=== PATIENT | female | born 1975 | race Caucasian/White ===

== ENCOUNTER 2017-10-16 08:13 | Outpatient (REF) | payer OTHER, SELFPAY ==
[2017-10-16 18:53] LABS: ALT 26 U/L (12-78); AST 15 U/L (15-37); Albumin 3.8 g/dL (3.4-5.0); Alkaline Phosphatase 78 U/L (46-116); Anion Gap 10.6 mmol/L (3-11); BUN 10 mg/dL (7-18); Bilirubin, Total 0.4 mg/dL (0.2-1.0); CO2 25.4 mmol/L (21.0-32.0); CREATININE 0.97 mg/dL (0.55-1.02); Calcium 8.7 mg/dL (8.5-10.1); Chloride 103 mmol/L (98-107); Cholesterol 130 mg/dL (50-200); Glucose 202 mg/dL (70-100); HDL Cholesterol 41 mg/dL (40-60); LDL CHOLESTEROL 76 mg/dL (<100); Sodium 139 mmol/L (136-145); Total Protein 7.4 g/dL (6.4-8.2); Triglyceride 117 mg/dL (30-150)
[2017-10-16 19:17] LABS: Hemoglobin A1C 6.8 % (4.5-6.2)
== END 2017-10-16 08:14 ==
LOC: NCHCN 08:13
PROVIDERS: PCP Physician Assistant Medical; Visit Provider Nurse Practitioner Family
DX: Z00.00 Encounter for general adult medical examination without abnormal findings (principal); E11.9 Type 2 diabetes mellitus without complications
CPT/HCPCS: 80053; 80061; 83721; 83036

== ENCOUNTER 2019-02-23 08:00 | Outpatient (REF) | payer OTHER, SELFPAY ==
[2019-02-23 19:56] LABS: ALT 15 U/L (14-59); AST 13 U/L (15-37); Albumin 4.1 g/dL (3.4-5.0); Alkaline Phosphatase 107 U/L (46-116); Anion Gap 13.1 mmol/L (3-11); BUN 10 mg/dL (7-18); Bilirubin, Total 0.5 mg/dL (0.2-1.0); CO2 24.9 mmol/L (21.0-32.0); CREATININE 0.89 mg/dL (0.55-1.02); Calcium 8.9 mg/dL (8.5-10.1); Calculated LDL 65 mg/dL; Chloride 102 mmol/L (98-107); Cholesterol 150 mg/dL (<200); Glucose 250 mg/dL (74-106); HDL Cholesterol 47 mg/dL (40-60); Potassium 4.3 mmol/L (3.5-5.1); Sodium 140 mmol/L (136-145); Total Protein 7.5 g/dL (6.4-8.2); Triglyceride 191 mg/dL (<150)
[2019-02-23 20:15] LABS: Creatine Kinase 91 U/L (26-192)
== END 2019-02-23 08:20 ==
LOC: NCHCN 08:00
PROVIDERS: PCP Physician Assistant Medical; Visit Provider Nurse Practitioner Family
DX: Z00.00 Encounter for general adult medical examination without abnormal findings (principal); Z13.228 Encounter for screening for other metabolic disorders; Z13.220 Encounter for screening for lipoid disorders; E11.9 Type 2 diabetes mellitus without complications
CPT/HCPCS: 80053; 80061; 82550; 82043; 82570

== ENCOUNTER 2019-02-24 09:14 | Outpatient (REF) | payer OTHER, SELFPAY ==
[2019-02-24 21:11] LABS: COMMENT (LAB VIEW ONLY) 155.12 mg/dL; Microalb ug/mg Crea 17.9 ug/mg Cr
== END 2019-02-24 09:34 ==
LOC: NCHCN 09:14
PROVIDERS: PCP Nurse Practitioner Family; Visit Provider Nurse Practitioner Family
DX: Z00.00 Encounter for general adult medical examination without abnormal findings (principal); E11.9 Type 2 diabetes mellitus without complications
CPT/HCPCS: 82043; 82570

== ENCOUNTER 2020-05-01 11:16 | Outpatient (REF) | payer OTHER, SELFPAY | END 2020-05-01 11:17 | disposition home or self-care (01) | LOC: NCHCN 11:16 | PROVIDERS: PCP Nurse Practitioner Family; Visit Provider Family Medicine | DX: E11.9 Type 2 diabetes mellitus without complications (principal) | CPT/HCPCS: 82043; 82570 ==

== ENCOUNTER 2020-10-30 13:42 | Outpatient (REF) | payer OTHER, SELFPAY ==
[2020-10-30 21:17] LABS: COMMENT (LAB VIEW ONLY) 57.35 mg/dL; Microalb ug/mg Crea 5.9 ug/mg Cr
== END 2020-10-30 13:43 | disposition home or self-care (01) ==
LOC: NCHCN 13:42
PROVIDERS: PCP Nurse Practitioner Family; Visit Provider Nurse Practitioner Family
DX: E11.9 Type 2 diabetes mellitus without complications (principal); R80.9 Proteinuria, unspecified; Z00.00 Encounter for general adult medical examination without abnormal findings
CPT/HCPCS: 82043; 82570

== ENCOUNTER 2021-11-12 13:19 | Outpatient (REF) | payer OTHER, SELFPAY ==
[2021-11-12 19:23] LABS: ALT 40 U/L (14-59); AST 25 U/L (15-37); Albumin 4.1 g/dL (3.4-5.0); Alkaline Phosphatase 83 U/L (46-116); Anion Gap 9.3 mmol/L (3-11); BUN 9 mg/dL (7-18); Bilirubin, Total 0.4 mg/dL (0.2-1.0); CO2 27.7 mmol/L (21.0-32.0); CREATININE 0.9 mg/dL (0.55-1.02); Calcium 9.3 mg/dL (8.5-10.1); Calculated LDL 121 mg/dL (<100); Chloride 104 mmol/L (98-107); Cholesterol 205 mg/dL (<200); Estimated GFR 78.86 (mL/min/1.73m2); Glucose 120 mg/dL (74-106); HDL Cholesterol 53 mg/dL (40-60); Potassium 4.8 mmol/L (3.5-5.1); Sodium 141 mmol/L (136-145); Total Protein 7.9 g/dL (6.4-8.2); Triglyceride 159 mg/dL (<150)
[2021-11-12 20:07] LABS: COMMENT (LAB VIEW ONLY) 176.04 mg/dL; Microalb ug/mg Crea 11.2 ug/mg Cr
[2021-11-14 10:48] LABS: Hepatitis C Ab w Rflx HCV PCR Negative (Negative)
== END 2021-11-12 13:20 | disposition home or self-care (01) ==
LOC: NCHCN 13:19
PROVIDERS: PCP Nurse Practitioner Family; Visit Provider Nurse Practitioner Family
DX: Z11.59 Encounter for screening for other viral diseases (principal); E11.9 Type 2 diabetes mellitus without complications
CPT/HCPCS: 80053; 80061; 86803; 82043; 82570

== ENCOUNTER 2022-05-13 10:18 | Outpatient (REF) | payer OTHER, SELFPAY ==
[2022-05-13 21:15] LABS: ALT 35 U/L (14-59); AST 18 U/L (15-37); Albumin 4.2 g/dL (3.4-5.0); Alkaline Phosphatase 82 U/L (46-116); Anion Gap 6.7 mmol/L (3-11); BUN 9 mg/dL (7-18); Bilirubin, Total 0.4 mg/dL (0.2-1.0); CO2 27.3 mmol/L (21.0-32.0); Calcium 9.5 mg/dL (8.5-10.1); Calculated LDL 90 mg/dL (<100); Chloride 106 mmol/L (98-107); Cholesterol 164 mg/dL (<200); Estimated GFR 69.49 (mL/min/1.73m2); Glucose 112 mg/dL (74-106); HDL Cholesterol 51 mg/dL (40-60); Potassium 5.2 mmol/L (3.5-5.1); Sodium 140 mmol/L (136-145); Total Protein 7.8 g/dL (6.4-8.2); Triglyceride 116 mg/dL (<150)
== END 2022-05-13 10:19 | disposition home or self-care (01) ==
LOC: NCHCN 10:18
PROVIDERS: PCP Nurse Practitioner Family; Visit Provider Nurse Practitioner Family
DX: E11.9 Type 2 diabetes mellitus without complications (principal)
CPT/HCPCS: 80053; 80061

== ENCOUNTER 2023-02-19 08:59 | Outpatient (REF) | payer OTHER, SELFPAY ==
--- OUTSIDE RECORDS SUMMARY | 2023-02-19 09:01 | XMS_ITS | Continuity of Care Document ---
Author Name Unknown Organization [facility] Address [address] [place] [address] Care Team Providers Care Sap Bw Architect Name Role Phone Catherine Yo Primary Care Physician [phone] Encounter [facility] [id number] Date(s): 06/19/22 - 06/19/[address] [address] Discharge Disposition: Home or Self Care Attending Physician: Darshana Ellison DO Admitting Physician: Darshana Ellison DO Referring Physician: Darshana Ellison DO Allergies, Adverse Reactions, Alerts Substance Reaction Severity Status CHOCOLATE FLAVOR Angioneurotic edema Unknown Acti ve doxycycline Urticaria Unknown Active Assessment and Plan Future Scheduled Tests Radiology* MRI Shoulder w/o Contrast Right 12/20/21 Immunizations Given and Recorded Vaccine Date Status Refusal Reason SARS-CoV-2 (COVID-19) mRNA BNT-162b2 vax 12/09/21 Recorded pneumococcal 20-valent conjugate vaccine 11/12/21 Recorded influenza virus vaccine, inactivated 1 10/31/21 Re corded influenza virus vaccine, inactivated 11/18/12 See rded influenza virus vaccine, inactivated 11/20/11 See rded influenza virus vaccine, inactivated 11/01/10 See rded influenza virus vaccine, inactivated 11/17/09 See rded influenza virus vaccine, inactivated 12/18/08 See rded SARS-CoV-2 (COVID-19) mRNA-1273 vaccine 12/16/20 R ecorded SARS-CoV-2 (COVID-19) mRNA-1273 vaccine 03/08/20 R ecorded SARS-CoV-2 (COVID-19) mRNA-1273 vaccine 02/08/20 R ecorded influenza virus vaccine, live 10/31/20 Recorded influenza virus vaccine, live 11/16/19 Recorded influenza virus vaccine, live 11/30/18 Recorded tetanus/diphth/pertuss (Tdap) adult/adol 08/12/19 Recorded tetanus/diphth/pertuss (Tdap) adult/adol 09/17/09 Recorded Novel Kgynwjewf-[id number], all formulation 12/18/08 Recorded tetanus-diphth toxoids (Td) adult/adol 02/18/00 Re corded rubella virus vaccine 2 73 Recorded measles/mumps/rubella virus vaccine 3 73 Rec orded hepatitis B adult vaccine 4 73 Recorded varicella virus vaccine 5 73 Recorded 1Result Comment: Employee Health 2Result Comment: INCORRECT DATE 3Result Comment: INCORRECT DATE 4Result Comment: INCORRECT DATE 5Result Comment: INCORRECT DATE Medications acetaminophen 325 mg oral tablet 650 mg = 2 tab, Oral, every 4 hr, PRN other (see comment), as needed Start Date: 09/26/21 Status: Ordered atorvastatin 10 mg oral tablet 10 mg = 1 tab, Oral, Daily, # 30 tab, 0 Refill(s) Start Date: 06/04/22 Status: Ordered ibuprofen 200 mg oral capsule 3 tab, Oral, every 6 hr Start Date: 09/26/21 Status: Ordered metFORMIN 500 mg oral tablet 500 mg = 1 tab, Oral, Daily, with meals, # 30 tab, 0 Refill(s) Start Date: 06/04/22 Status: Ordered ondansetron 4 mg oral tablet, disintegrating 4 mg = 1 tab, Oral, Once, PRN as needed for nausea/vomiting, # 30 tab, 1 Refill(s), Pharmacy: [id number] Start Date: 02/06/22 Status: Ordered Ozempic 2 mg/1.5 mL (0.25 mg or 0.5 mg dose) subcutaneous solution 0 Refill(s) Start Date: 06/04/22 Status: Ordered Problem List Condition Confirmation Course Effective Dates Status H ealth Status Informant Acne Confirmed Active Anisocoria Confirmed Active Contact dermatitis Confirmed Active Depressive disorder Confirmed Active Diabetes mellitus Confirmed 12/15/17 Active Disorder of pancreas Confirmed Active Dysthymia Confirmed Active Dysuria Confirmed Active Hip pain Confirmed Active Inflammation of cervix Confirmed Active Insomnia Confirmed Active Intestinal disaccharidase deficiency Confirmed Active Irritable bowel syndrome Confirmed Active Pain of breast Confirmed Active Panic disorder with agoraphobia Confirmed Active Ventral incisional hernia 1 Confirmed Active Ventricular premature beats Confirmed 12/08/17 Active 1Ventral incisional hernia of anterior abdominal wall without obstruction AND without gangrene Procedures Procedure Date Related Diagnosis Body Site Status Colonoscopy 1 04/23/20 Completed Laparoscopic total hysterectomy 2 12/14/17 Completed Hernia repair 11/16/16 Completed Cholecystectomy 3 02/02/11 Complet ed Tubal ligation Completed 1WNL 2TLH, BSO, USVVS, Cystoscopy 3Laparoscopic Social History Social History Type Response Tobacco Never tobacco user T obacco Use:. Sex Female Patient Care team information Care Team Personnel Name: Catherine Yo COMPOUND WORKER Position: PowerChart View Only Member Role: Primary Care Physician Address: Address: [address] [place] [phone]- Care Team Related Persons Name: ARASELI CASAS Address: Home [address] [facility], [place], [phone]
--- OUTSIDE RECORDS SUMMARY | 2023-02-19 09:01 | XMS_ITS | Continuity of Care Document ---
Author Name Unknown Organization [facility] Address [address] [place] [address] Care Team Providers Care Manager Knowledge Name Role Phone Catherine Yo Primary Care Physician Encounter [facility] [id number] Date(s): 11/13/22 - 11/13/[address] [address] [place] Encounter Diagnosis Chest pain(Discharge Diagnosis) - 11/13/22 Discharge Disposition: Home or Self Care Attending Physician: Sinai Joiner FLEET OPERATIONS MANAGER Admitting Physician: Sinai Joiner NP Referring Physician: Sinai Joiner FLEET OPERATIONS MANAGER Allergies, Adverse Reactions, Alerts Substance Reaction Severity Status CHOCOLATE FLAVOR Angioneurotic edema Unknown Acti ve doxycycline Urticaria Unknown Active Assessment and Plan Future Appointments Future Scheduled Tests Radiology* MRI Shoulder w/o [...] Recorded tetanus/diphth/pertuss (Tdap) adult/adol 09/17/09 Recorded Novel Mztnwdqby-N5L5-06, all formulation 12/18/08 Recorded tetanus-diphth toxoids (Td) [...] nausea/vomiting, # 30 tab, 1 Refill(s), Pharmacy: [id number] Start Date: 02/06/22 Status: Ordered Ozempic 2 [...] team information Care Team Personnel Name: Catherine oY FLEET OPERATIONS MANAGER Position: PowerChart View Only Member Role: Primary Care Physician Address: Address: [address] [place] [phone]- Care Team Related Persons Name: ARASELI CASAS Address: Home [address] [place] [address], [phone]
--- OUTSIDE RECORDS SUMMARY | 2023-02-19 09:01 | XMS_ITS | Continuity of Care Document ---
Author Name Unknown Organization [facility] Address [address] [place] [address] Care Team Providers Care Technical Services Representative Name Role Phone Catherine Yo Primary Care Physician [phone] Encounter [facility] [id number] Date(s): 04/02/22 - 04/02/[address] [address] Discharge Disposition: Home or Self Care Attending Physician: Darshana Ellison DO Admitting Physician: Darshana Ellison DO Referring Physician: Catherine Yo COUNCIL ON AGING DIRECTOR Allergies, Adverse Reactions, Alerts Substance Reaction Severity [...] Recorded tetanus/diphth/pertuss (Tdap) adult/adol 09/17/09 Recorded Novel Iqyqussss-P4P1-95, all formulation 12/18/08 Recorded tetanus-diphth toxoids (Td) [...] as needed Start Date: 09/26/21 Status: Ordered ibuprofen 200 mg oral capsule 3 tab, Oral, every 6 hr Start Date: 09/26/21 Status: Ordered ondansetron 4 mg oral tablet, disintegrating 4 mg = 1 tab, Oral, Once, PRN as needed for nausea/vomiting, # 30 tab, 1 Refill(s), Pharmacy: [id number] Start Date: 02/06/22 Status: Ordered Problem List Condition Confirmation Course [...] information Care Team Personnel Name: Catherine Yo COUNCIL ON AGING DIRECTOR Position: PowerChart View Only Member Role: Primary Care Physician Address: Address: [address] [place] [phone]- Care Team Related Persons Name: ARASELI CASAS Address: Home [address] [facility], [phone]
--- OUTSIDE RECORDS SUMMARY | 2023-02-19 09:01 | XMS_ITS | Continuity of Care Document ---
Author Name Unknown Organization [facility] Address [address] [place] [address] Care Team Providers Care Extender Name Role Phone Catherine Yo Primary Care Physician [facility] Date[facility]s): 06/04/22 - 06/04/22 [facility] [address] [place] [address] us Discharge Disposition: Home Allergies, Adverse Reactions, Alerts Substance Reaction Severity [...] Recorded tetanus/diphth/pertuss (Tdap) adult/adol 09/17/09 Recorded Novel Qqwrjhhfe-[id number], all formulation 12/18/08 Recorded tetanus-diphth toxoids (Td) [...] nausea/vomiting, # 30 tab, 1 Refill(s), Pharmacy: [id number] Start Date: 02/06/22 Status: Ordered Ozempic 2 [...] information Care Team Personnel Name: Catherine Yo TAFE REGISTRAR Position: PowerChart View Only Member Role: Primary Care Physician Address: Address: [address] [place] [phone]- Care Team Related Persons Name: ARASELI CASAS Address: Home [address] [place] [address], [phone]
--- OUTSIDE RECORDS SUMMARY | 2023-02-19 09:01 | XMS_ITS | Continuity of Care Document ---
Author Name Unknown Organization [facility] Address [address] [place] [address] Care Team Providers Care Buyer Internship Name Role Phone Catherine Yo Primary Care Physician Encounter [facility] Date(s): 06/04/22 - 06/04/22 [facility] [address] [place] [address] [place] Encounter Diagnosis Diabetes mellitus(Discharge Diagnosis) - 06/04/22 Palpitations(Discharge Diagnosis) - 06/04/22 Palpitations(Final) - Type 2 diabetes mellitus without complications(Final) - Discharge Disposition: Home or Self Care Attending Physician: Darshana Ellison DO Allergies, Adverse Reactions, Alerts Substance Reaction Severity Status CHOCOLATE FLAVOR Angioneurotic edema Unknown Acti ve doxycycline Urticaria Unknown Active Assessment and Plan Future Appointments Future Scheduled Tests Radiology* MRI Shoulder w/o Contrast Right 12/20/21 Functional Status 06/04/22 Other exposure to Infectious Disease Non e Immunizations Given and Recorded Vaccine Date Status [...] Recorded tetanus/diphth/pertuss (Tdap) adult/adol 09/17/09 Recorded Novel Exeixmykt-[id number], all formulation 12/18/08 Recorded tetanus-diphth toxoids (Td) [...] nausea/vomiting, # 30 tab, 1 Refill(s), Pharmacy: [id number] Start Date: 02/06/22 Status: Ordered Ozempic 2 [...] Completed 1WNL 2TLH, BSO, USVVS, Cystoscopy 3Laparoscopic Vital Signs Most recent to oldest [Reference Range]: 1 Peripheral Pulse Rate [60-100 bpm] 76 bp m (06/04/22 8:35 AM) Blood Pressure [90-140/60-90 mmHg] 128/8 3mmHg (06/04/22 8:35 AM) Weight 80.8 kg (06/04/22 8:35 AM) Weight Measured (lbs) 178.133 lb (06/04/22 8:35 AM) Social History Social History Type Response Tobacco Never tobacco user T obacco Use:. Sex Female Physician Outpatient Note * Darshana Ellison DO: PERFORM Event Display: Office Clinic Note Physician Authored Date: [id number] AUGUSTO TA JESSENIA :1975 Age:46 years Sex:Female Visit Date:06/04/2022 Primary Care Physician: Catherine Yo NP Chief Complaint Patient is here to [facility]. History of Present Illness Patient is here for initial evaluation.?? Patient has a significant family history.?? Patient underwent a stress test without imaging.?? Patient's mother had an SD at age 42.?? Patient's father had CABG at age 70s.?? Patient is experiencing palpitations.?? Review of Systems Constitutional:?No??fevers,?No??chills,?No??sweats Eye:?No??recent visual problems ENT:?No??ear pain,?No??nasal congestion,?No??sore throat Respiratory:?No??shortness of breath,?No??cough Cardiovascular:?No??Chest pain,?Positive for??palpitations,?No??syncope Gastrointestinal:?Nonausea,?No??vomiting,?No??diarrhea Genitourinary:?No??hematuria Gurpreet/Lymph:?No??bruising tendency,?No??swollen lymph glands Endocrine:?No??excessive thirst,??No??excessive hunger Musculoskeletal:??No??back pain,??No??neck pain,??No??joint pain,??No??muscle pain,??No??decreased range of motion Integumentary:?No??rash,?No??pruritus,?No??abrasions Neurologic: Alert & oriented X 4 Psychiatric:?No??anxiety,?No??depression Physical Exam Vitals & Measurements HR:??76??(Peripheral)?? BP:??128/83?? SpO2:??98%?? WT:??80.8??kg?? General: Alert and oriented, well nourished,?No??acute distress Eye: PERRL, EOMI,?Normal?conjunctiva HENT: Normocephalic, clear tympanic membranes,?Normal? hearing, moist oral mucosa,?No??scleral icterus,?No??sinus tenderness Neck: Supple, non-tender,?No??carotid bruits,?No??JVD,?No??lymphadenopathy Lungs:??Clear to auscultation?? Respiration:??Non-Labored Heart:?Normal? rate,?Regular??rhythm,?No??murmur,?No??gallop,?No??edema Breast:?No??lumps,?No??bumps,?No??scars,?Normal? nipples Abdomen: Soft, non-tender, non-distended,?Normal? bowel sounds,?No??masses Musculoskeletal:?Normal? range of motion and strength,?No??tenderness,?No??swelling Skin: Skin is warm, dry and pink,?No??rashes,?No??lesions Neurologic: Awake, alert and oriented X4, CN II-XII intact Psychiatric: Cooperative, appropriate mood and affect Assessment/Plan 1.??Diabetes mellitus??E11.9 1. echocardiogram Ordered: Echocardiogram Complete, 06/04/22, Other, Please Specify, Order for future visit, Diabetes mellitus Palpitations Follow-Up Appointment Request [facility], *Est. 09/03/22 +/- 21 days, Future Order, In Approximately, [facility] ?? 2.??Palpitations??R00.2 1. echocardiogram 2. follow up after echocardipogram Ordered: Echocardiogram Complete, 06/04/22, Other, Please Specify, Order for future visit, Diabetes mellitus Palpitations Follow-Up Appointment Request [facility], *Est. 09/03/22 +/- 21 days, Future Order, In Approximately, [facility] ?? Problem List/Past Medical History Ongoing Acne Anisocoria Contact dermatitis Depressive disorder Diabetes mellitus Disorder of pancreas Dysthymia Dysuria Hip pain Inflammation of cervix Insomnia Intestinal disaccharidase deficiency Irritable bowel syndrome Pain of breast Panic disorder with agoraphobia Ventral incisional hernia Ventricular premature beats Historical No qualifying data Procedure/Surgical History ???Colonoscopy (04/24/2020)???Laparoscopic total hysterectomy (12/15/2017)???Hernia repair (11/17/2016)???Cholecystectomy (02/03/2011)???Tubal ligation Medications acetaminophen 325 mg oral tablet, 650 mg= 2 tab, Oral, every 4 hr, PRN atorvastatin 10 mg oral tablet, 10 mg= 1 tab, Oral, Daily ibuprofen 200 mg oral capsule, 3 tab, Oral, every 6 hr metFORMIN 500 mg oral tablet, 500 mg= 1 tab, Oral, Daily ondansetron 4 mg oral tablet, disintegrating, 4 mg= 1 tab, Oral, Once, PRN, 1 refills Ozempic 2 mg/1.5 mL (0.25 mg or 0.5 mg dose) subcutaneous solution Allergies CHOCOLATE FLAVOR??(Angioneurotic edema) doxycycline??(Urticaria) Social History Electronic Cigarette/Vaping Electronic Cigarette Use: Never. Tobacco Never tobacco user Tobacco Use:. Family History Bypass: Mother (Dx at 42). Diabetes mellitus: Mother and Father. Heart disease: Mother. Hypertension: Father. SS - Spinal stenosis: Father. Immunizations Vaccine Date Status SARS-CoV-2 (COVID-19) mRNA BNT-162b2 vax 12/09/2021 Recorded pneumococcal 20-valent conjugate vaccine 11/12/2021 Recorded influenza virus vaccine, inactivated 10/31/2021 Recorded Comments : Employee Health SARS-CoV-2 (COVID-19) mRNA-1273 vaccine 12/16/2020 Recorded influenza virus vaccine, live 10/31/2020 Recorded SARS-CoV-2 (COVID-19) mRNA-1273 vaccine 03/08/2020 Recorded SARS-CoV-2 (COVID-19) mRNA-1273 vaccine 02/08/2020 Recorded influenza virus vaccine, live 11/16/2019 Recorded tetanus/diphth/pertuss (Tdap) adult/adol 08/12/2019 Recorded influenza virus vaccine, live 11/30/2018 Recorded influenza virus vaccine, inactivated 11/18/2012 Recorded influenza virus vaccine, inactivated 11/20/2011 Recorded influenza virus vaccine, inactivated 11/01/2010 Recorded influenza virus vaccine, inactivated 11/17/2009 Recorded tetanus/diphth/pertuss (Tdap) adult/adol 09/17/2009 Recorded influenza virus vaccine, inactivated 12/18/2008 Recorded Novel Bjfswnoax-E0J1-88, all formulation 12/18/2008 Recorded tetanus-diphth toxoids (Td) adult/adol 02/18/2000 Recorded Electronically Signed on 06/04/22 09:11 AM Darshana Ellison DO Patient Care team information Care Team Personnel Name: Catherine Yo SEPHORA OPERATIONS CONSULTANT Position: PowerChart View Only Member Role: Primary Care Physician Address: Address: [address] [place] [phone] [place] Care Team Related Persons Name: ARASELI CASAS Address: Home [address] [place] [address], [phone]
--- OUTSIDE RECORDS SUMMARY | 2023-02-19 09:01 | XMS_ITS | Continuity of Care Document ---
Author Name Unknown Organization [facility] Address [address] [place] [address] Care Team Providers Care Saddle Stitching Machine Operator Name Role Phone Catherine Yo Primary Care Physician Encounter [facility] Date(s): 03/08/22 - 03/08/[address] [address] Discharge Disposition: Home or Self Care Attending Physician: Catherine Yo LABORER VINEYARD Admitting Physician: Catherine Yo LABORER VINEYARD Referring Physician: Catherine Yo LABORER VINEYARD Allergies, Adverse Reactions, Alerts Substance Reaction Severity [...] Recorded tetanus/diphth/pertuss (Tdap) adult/adol 09/17/09 Recorded Novel Zopkgjleh-M3G7-05, all formulation 12/18/08 Recorded tetanus-diphth toxoids (Td) [...] nausea/vomiting, # 30 tab, 1 Refill(s), Pharmacy: [id number] Start Date: 02/06/22 Status: Ordered Problem List [...] tobacco user T obacco Use:. Sex Female Note * Ariadne Ramirez: PERFORM Event Display: Event Monitor Authored Date: [id number] TA CASAS 1975 [id number] Patient placed on Zio Event Monitor 14 dayson 03/08/22. Electronically Signed on 03/08/22 04:16 PM Ariadne Ramirez Patient Care team information Personnel Name: Catherine Yo NP Address: Address: [address] [place] [phone] [place]
--- OUTSIDE RECORDS SUMMARY | 2023-02-19 09:01 | XMS_ITS | Continuity of Care Document ---
Author Name Unknown Organization [facility] Address [address] [place] [address] Care Team Providers Care Blade Grinder Name Role Phone Catherine Yo Primary Care Physician [phone] [facility] Date(s): 06/12/22 - 06/12/[address] [address] Discharge Disposition: Home or Self Care Attending Physician: Catherine Yo APPLIQUE CUTTER Admitting Physician: Catherine Yo APPLIQUE CUTTER Referring Physician: Catherine Yo APPLIQUE CUTTER Allergies, Adverse Reactions, Alerts Substance Reaction Severity [...] Recorded tetanus/diphth/pertuss (Tdap) adult/adol 09/17/09 Recorded Novel Hfificzcr-[id number], all formulation 12/18/08 Recorded tetanus-diphth toxoids (Td) [...] nausea/vomiting, # 30 tab, 1 Refill(s), Pharmacy: [id number] Start Date: 02/06/22 Status: Ordered Ozempic 2 [...] information Care Team Personnel Name: Catherine Yo APPLIQUE CUTTER Position: PowerChart View Only Member Role: Primary Care Physician Address: Address: [address] [place] [phone]- Care Team Related Persons Name: ARASELI CASAS Address: Home [address] [place] [address], [phone]
--- OUTSIDE RECORDS SUMMARY | 2023-02-19 09:01 | XMS_ITS | Continuity of Care Document ---
Author Name Unknown Organization [facility] Address [address] [place] [address] Care Team Providers Care Emergency Registrar Name Role Phone Catherine Yo Primary Care Physician [phone] Encounter NCTY_[place] Date(s): 10/22/22 - 10/22/22 [facility] [address] [place] [address] Encounter Diagnosis Ventricular premature beats(Discharge Diagnosis) - 10/22/22 Chest pain(Discharge Diagnosis) - 10/22/22 Discharge Disposition: Home or Self Care Attending Physician: Sinai Joiner RESEARCH & INSIGHTS EXECUTIVE Allergies, Adverse Reactions, Alerts Substance Reaction Severity Status CHOCOLATE FLAVOR Angioneurotic edema Unknown Acti ve doxycycline Urticaria Unknown Active Assessment and Plan Future Appointments Future Scheduled Tests Radiology* MRI Shoulder w/o Contrast Right 12/20/21 * NM Myocardial SPECT Drug Stress Multi 10/22/22 Immunizations Given and Recorded Vaccine Date Status [...] Recorded tetanus/diphth/pertuss (Tdap) adult/adol 09/17/09 Recorded Novel Cbbzfcayi-[id number], all formulation 12/18/08 Recorded tetanus-diphth toxoids (Td) [...] nausea/vomiting, # 30 tab, 1 Refill(s), Pharmacy: [id number] Start Date: 02/06/22 Status: Ordered Ozempic 2 mg/1.5 mL (0.25 mg or 0.5 mg dose) subcutaneous solution 0 Refill(s) Start Date: 06/04/22 Status: Ordered Problem List Condition Confirmation Course Effective Dates Status H ealth Status Informant Acne Confirmed Active Anisocoria Confirmed Active Contact dermatitis Confirmed Active Depressive disorder Confirmed Active Diabetes mellitus Confirmed 10/29/18 Active Disorder of pancreas Confirmed Active Dysthymia [...] Range]: 1 Peripheral Pulse Rate [60-100 bpm] 90 bp m (10/22/22 3:17 PM) Blood Pressure [90-140/60-90 mmHg] 124/8 0mmHg (10/22/22 3:17 PM) Weight 76.10 kg (10/22/22 3:17 PM) Weight Measured (lbs) 167.772 lb (10/22/22 3:17 PM) Height 163 cm (10/22/22 3:17 PM) Height/Length Measured (inches) 64.17 in ch (10/22/22 3:17 PM) BSA Measured 1.86 m2 (10/22/22 3:17 PM) Body Mass Index 28.64 kg/m2 (10/22/22 3:17 PM) Social History Social History Type Response Tobacco Never tobacco user T obacco Use:. Sex Female Physician Outpatient Note * Sinai Joiner RESEARCH & INSIGHTS EXECUTIVE: PERFORM Event Display: Office Clinic Note Physician Authored Date: [id number] AUGUSTINA CASAS :1975 Age:47 years Sex:Female Visit Date:10/22/2022 Primary Care Physician: Catherine Yo NP History of Present Illness Cardiac Problems: 1. Diabetes Mellitus- atorvastatin 10mg ?? This is a 47-year-old female that was last seen by Dr. Ellison on to establish care. She has a family history of cardiac issues- her mother had an CO at age 42 and father had a CABG in his 70s.??In May 2022??she was experiencing palpitations. Dr. Ellison had ordered an echocardiogramwhich was reassuring. ??She is maintained on atorvastatin 10mg. She had a zio in 03/2022 which showed 13 day monitor, predominance of sinus, 63-171bpm. Rare single PACs and PVCs. No VT or pauses. Single episode of 6 beats narrow complex irregular tachycardia- essentially cluster of PACs-she was not aware of. PCP did not think the single episode of clustered PACs was of clinical significance. ?? She is doing well today. She has been under significant stress lately between her husbands newly diagnosed??illness, her father's cancer, and being a mom. She reports palpitations 2x/week that feel like?? heart is flip-flopping. She states shes knows if she has too much caffeine (2 cups)??will have more palpitations. She was having palpitations ??and chest pressure frequently, then had respiratory disease in May with??significant coughing and they have decreased to 2x/week and ???better since then?? . She describes them as it feels like a rapid HR, I check my pulse and it is a little over 100, Nothing extravagant.? She now is reporting once a week 3/10 chest pressure on her right?? chest through the back. She comments that she does??have issues with her shoulder and she was chalking it up to stress or tossing and turning the night before. No nausea, syncope, no SOB, no diaphoresis with this pressure, andit is??resolved in a??couple of hours.??Last week was the last time she experienced this chest pressure. ?? She denies syncope, dyspnea, PND, orthopnea, and edema. She is currently not performing regular exercise. 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 She does achieve 10,000 steps daily. The activity she does perform she denies chest pain and dyspnea however. ?? She does not take her blood pressure at home. She has been on Ozempic for her diabetes and has lostover 37pounds. ?? She did raise a question of her atorvastatin dosing. It was originally 10mg, and now Annettat it giving her 20mg and stated it was a dose increase starting in October but I can not see any notes regarding this increase. She is speaking with her PCP at her next appointment regarding this. She believes her cholesterol readings were normal. Review of Systems A complete review of systems is negative other than as noted in the history of present illness. Physical Exam Vitals & Measurements HR:??90??(Peripheral)?? BP:??124/80?? SpO2:??97%?? HT:??163??cm?? WT:??76.10??kg?? BMI:??28.64?? BSA:??1.86?? HEENT: Normocephalic, atraumatic Respirations: Clear to auscultation bilaterally with no wheezes rubs or rhonchi Cardiac: Regular rate and rhythm, normal S1, S2, no murmurs gallops or rubs Abdomen: Nontender nondistended normal active bowel sounds Extremities: 2+ dorsalis pedis pulses bilaterally with no significant edema Medical Decision Making Data Review: 03/28/2022: ZIO: 13 day monitor, predominance of sinus, 63-171bpm. Rare single PACs and PVCs. No VTor pauses. Single episode of 6 beats narrow complex irregular tachycardia-essentially cluster of PACs-she was not aware of. PCP did not think the single episode of clustered PACs was of clinical significance. 04/02/2022: Treadmill stress test: Normal stress test. Ambulated 9 minutes. 10.10 METs. MPHR 112% achieved. No chest pain. 06/19/2022: Echocardiogram: EF 60% normal wall motion. Mild TR. PAP 19mmHg. Reassuring echo. 10/22/2022: Sinus rhythm at 74bpm, axis and intervals within normal limits. ? 47-year-old female with palpitations ? Palpitations: We discussed that her Zio showed PACs and reassured her that?? PACs and PVCs are not dangerous, do not increase risk of having CO or stroke and are a normal rhythm. She should continue to exercise??as normal. ??If they become unbearable however, we could always try cardizem as our next step. She did not want to start medication at this time, and it didn't sound like it was unmanageable for her at this time. ?? Chest pain: She is currently having 3/10 chest pain/pressure weekly and has an extensive family history of cardiac disease and a personal history of diabetes. Her echocardiogram was reassuring recently so I am ordering a Lexiscan test to rule out ischemia. This chest pain is a new symptom from her last treadmill test and I want to make sure there is no new ischemia present. I will see her in 3 months to go over these results. If she continues to have this chest pain, I encouraged her to be evaluated in the ER. ?? It was a pleasure to meet Augustina Dan. She knows to call with any questions. Clinic Assessment/Plan Chest pain??R07.9 Actions: COMPLETED - 94005 Office/Outpatient Visit - Established Patient, Level 4 (30-39 min)., 10/22/22 15:13:00 EDT, Chest pain FUTURE - Follow-Up Appointment Request NCTY, *Est. 01/21/23 +/- 21 days, Future Order, In Count Includes [facility], [facility] FUTURE - NM Myocardial SPECT Drug Stress Multi, 10/22/22, Routine, Reason: Chest pain, Transport Mode: Ambulatory, Chest pain, Exam to be performed outside organization? ?? Ventricular premature beats??I49.3 [facility]: [facility], 10/22/22 15:17:00 EDT, Routine, Reason: Other (please specify), Stop date and time 10/22/22 15:17:00 EDT, Ventricular premature beats, ORD_SET_REQ_DT_RANGE, Trajuanjose's Internal Person Id ?? Problem List/Past Medical History Ongoing Acne Anisocoria Contact dermatitis Depressive disorder Diabetes mellitus Disorder of pancreas Dysthymia Dysuria Hip pain Inflammation of cervix Insomnia Intestinal disaccharidase deficiency Irritable bowel syndrome Pain of breast Panic disorder with agoraphobia Ventral incisional hernia Ventricular premature beats Historical No qualifying data Procedure/Surgical History ???Colonoscopy (04/24/2020)???Laparoscopic total hysterectomy (12/15/2017)???Hernia repair (11/17/2016)???Cholecystectomy (02/03/2011)???Tubal ligation Medications What How Much When Why Instructions Unchanged acetaminophen (acetaminophen 325 mg oral tablet) 2 tab Oral (given by mouth) Every 4 hours as needed for other (see comment) as needed ?? Unchanged atorvastatin (atorvastatin 10 mg oral tablet) 1 tab Oral (given by mouth) Every day Unchanged ibuprofen (ibuprofen 200 mg oral capsule) 3 tab Oral (given by mouth) Every 6 hours Unchanged metFORMIN (metFORMIN 500 mg oral tablet) 1 tab Oral (given by mouth) Every day with meals ?? Unchanged ondansetron (ondansetron 4 mg oral tablet, disintegrating) 1 tab Oral (given by mouth) Once as needed for as needed for nausea/vomiting Nausea & vomiting Unchanged semaglutide (Ozempic 2 mg/ 1.5 mL (0.25 mg or 0.5 mg dose) subcutaneous solution) Allergies CHOCOLATE FLAVOR??(Angioneurotic edema) doxycycline??(Urticaria) Social History [...] influenza virus vaccine, inactivated 12/18/2008 Recorded Novel Lydpfpkxe-[id number], all formulation 12/18/2008 Recorded tetanus-diphth toxoids (Td) adult/adol 02/18/2000 Recorded Electronically Signed on 10/22/22 04:16 PM Sinai Joiner RESEARCH & INSIGHTS EXECUTIVE Patient Care team information Care Team Personnel Name: Catherine Yo RESEARCH & INSIGHTS EXECUTIVE Position: PowerChart View Only Member Role: Primary Care Physician Address: Address: [address] [place] [id number] Care Team Related Persons Name: ARASELI CASAS Address: Home [address] [facility], [id number]
--- OUTSIDE RECORDS SUMMARY | 2023-02-19 09:01 | XMS_ITS | Continuity of Care Document ---
Author Name Unknown Organization [facility] Address [address] [place] [address] Care Team Providers Care Anode Crew Supervisor Name Role Phone Catherine Yo Primary Care Physician [phone] Encounter NCTY_[place] Date(s): 01/21/23 - 01/21/23 [facility] [address] [place] [address] Encounter Diagnosis Dysrhythmia(Discharge Diagnosis) - 01/21/23 Discharge Disposition: Home or Self Care Attending Physician: Sinai Joiner GAS PIT WORKER Allergies, Adverse Reactions, Alerts Substance Reaction Severity Status CHOCOLATE FLAVOR Angioneurotic edema Unknown Acti ve doxycycline Urticaria Unknown Active Immunizations Given and Recorded Vaccine Date Status Refusal Reason influenza virus vaccine, inactivated 1 12/09/22 Re corded influenza virus vaccine, inactivated 2 10/31/21 Re corded influenza virus vaccine, inactivated 11/18/12 See rded influenza virus vaccine, inactivated 11/20/11 See rded influenza virus vaccine, inactivated 11/01/10 See rded influenza virus vaccine, inactivated 11/17/09 See rded influenza virus vaccine, inactivated 12/18/08 See rded SARS-CoV-2 (COVID-19) mRNA BNT-162b2 vax 12/09/21 Recorded pneumococcal 20-valent conjugate vaccine 11/12/21 Recorded SARS-CoV-2 (COVID-19) mRNA-1273 vaccine 12/16/20 R ecorded SARS-CoV-2 (COVID-19) mRNA-1273 vaccine 03/08/20 R ecorded SARS-CoV-2 (COVID-19) mRNA-1273 vaccine 02/08/20 R ecorded influenza virus vaccine, live 10/31/20 Recorded influenza virus vaccine, live 11/16/19 Recorded influenza virus vaccine, live 11/30/18 Recorded tetanus/diphth/pertuss (Tdap) adult/adol 08/12/19 Recorded tetanus/diphth/pertuss (Tdap) adult/adol 09/17/09 Recorded Novel [id number]-[id number], all formulation 12/18/08 Recorded tetanus-diphth toxoids (Td) adult/adol 02/18/00 Re corded rubella virus vaccine 3 73 Recorded measles/mumps/rubella virus vaccine 4 73 Rec orded hepatitis B adult vaccine 5 73 Recorded varicella virus vaccine 6 73 Recorded 1Result Comment: EM[employer]OYEE [employer] 2Result Comment: Employee Health 3Result Comment: INCORRECT DATE 4Result Comment: INCORRECT DATE 5Result Comment: INCORRECT DATE 6Result Comment: INCORRECT DATE Medications acetaminophen 325 mg [...] nausea/vomiting, # 30 tab, 1 Refill(s), Pharmacy: [id number] Start Date: 02/06/22 Status: Ordered Ozempic 2 [...] Range]: 1 Peripheral Pulse Rate [60-100 bpm] 92 bp m (01/21/23 1:04 PM) Blood Pressure [90-140/60-90 mmHg] 116/8 4mmHg (01/21/23 1:04 PM) Mean Arterial Pressure, Cuff [70-110 mmH g] 95 mmHg (01/21/23 1:04 PM) Weight 74.84 kg (01/21/23 1:04 PM) Weight Measured (lbs) 164.994 lb (01/21/23 1:04 PM) Weight Dosing 74.840 kg (01/21/23 1:04 PM) Height 162.56 cm (01/21/23 1:04 PM) Height/Length Measured (inches) 64 inch (01/21/23 1:04 PM) BSA Measured 1.84 m2 (01/21/23 1:04 PM) Body Mass Index 28.32 kg/m2 (01/21/23 1:04 PM) Social History Social History Type Response Tobacco Never tobacco user T obacco Use:. Sex Female Physician Outpatient Note * Sinai Joiner GAS PIT WORKER: PERFORM Event Display: Office Clinic Note Physician Authored Date: [id number] AUGUSTINA CASAS :1975 Age:47 years Sex:Female Visit Date:01/21/2023 Primary Care Physician: Catherine Yo NP History of Present Illness Cardiac Problems: 1. Diabetes Mellitus- atorvastatin 10mg ?? This is a 47-year-old female that I last saw in the office on 10/22/2022??for palpitations and??to establish care.?? Last echo??was??done??in June 2022 and was reassuring.?? Last Zio was done in March 2022 which showed 13 day monitor, predominance of sinus, 63-171bpm. Rare single PACs and PVCs. No VT or pauses. Single episode of 6 beats narrow complex irregular tachycardia-essentially cluster of PACs-she was not aware of. PCP did not think the single episode of clustered PACs was of clinical significance. ??She was reporting palpitations 2 times a week??and chest pressure??that was 3 out of 10 on her right chest into her back.?? We discussed??her Zio showing PACs??and if they become unbearab le??we could discuss starting a medication.?? I did order a Lexiscan to rule out ischemia related to her chest pain.This showed normal myocardial perfusion with no evidence of ischemia or prior infarct.?? Normal LV function with normal wall motion and ejection fraction greater then 60%. ?? She states that she has been doing??well lately. ??She just started Ozempic??and has lost 30 pounds??when she first started??and now she is??doing much better with the nausea. ??She still reports that she is having??the palpitations??couple times a week. ??This has decreased since last time that I h ad spoken, they are definitely not every day, and she is noticing that they are increased with stress??and caffeine.?? She remarks that she does not feel that they are significant enough for medications??at this point.?? She denies chest pain,??dyspnea, syncope, orthopnea, PND, and edema.?? She states that??she will get mildly short of breath??with climbing a few flights of stairs. ??She feels like she needs to be more active??than she is. ?? 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 She is not currently checking her blood pressure at home, butstates that she is usually lower??when measured in the office. ?? It sounds like she has??an increased amount of stress??at home??with her 's new diagnosisas well as her??father's health.?It sounds??like her father's health has declined??significantly??with dyspnea on exertion??and they are actually looking to??look further into this. Review of Systems A complete review of systems is negative other than as noted in the history of present illness. Physical Exam Vitals & Measurements HR:??92??(Peripheral)?? BP:??116/84?? SpO2:??98%?? HT:??162.56??cm?? WT:??74.84??kg?? BMI:??28.32?? BSA:??1.84?? HEENT: Normocephalic, atraumatic Respirations: Clear to auscultation [...] 74bpm, axis and intervals within normal limits. 01/21/2023: EKG:Sinus rhythm at 92 bpm, axes and intervals within normal limits 11/13/2022.?? Lexiscan stress test.?? Normal myocardial perfusion with no evidence of ischemia or prior infarct, normal LV function with normal wall motion and ejection fraction greater than 60%. ?? 47-year-old female with palpitations ? Palpitations:??She is still experiencing??the palpitations??that was??determined to be PACs and PVCs??on a Zio monitor back in March.?? She remarks that they are not??frequent enough??or unmanageable??to require medications at this point. ??We did discuss that for PACs or PVCs, if the symptoms become unmanageable that we could always trial a??low-dose beta-svetlana.?? Overall the PACs and PVCs a re??not to a dangerous rhythm and they do not increase her odds of a heart attack or stroke. ?? Chest Pain:??She is not currently??symptomatic with chest pain at this time.?? She had??a reassuring??Lexiscan stress test back in October that showed normal??myocardial perfusion with no evidence of ischemia or prior infarct, normal??wall motion and LV function as well as??ejection fraction greater than 60%.?? We discussed??this result??at length today??and I reassured??Augustina??regarding the test.?? If she can??experiences the chest pain again she should be evaluated in the emergency room. ?? Overall she is doing well??and the palpitations are getting less. ??We did discuss??stress reduction??and increase in??exercise. ??I will see her back in 1 year??to see how she is doing. ??She knows to call in with any questions or concerns??if she needs to be seen sooner in the meantime.?? Was a pleasure to see Augustina again. Clinic Assessment/Plan Dysrhythmia??I49.9 Actions: COMPLETED - 52317 Office/Outpatient Visit - Established Patient, Level 3 (20-29 min)., 01/21/23 13:00:00 EST, Dysrhythmia FUTURE - Follow-Up Appointment Request NCTY, *Est. 01/22/24 +/- 28 days, Future Order, In Approximately, [facility] ?? Additional Actions: COMPLETED - Follow-Up Appointment Request NCTClive, 01/21/23 13:20:00 EST, In Approximately, [facility], 01/21/23 13:20:00 EST Problem List/Past Medical History Ongoing Acne Anisocoria [...] Spinal stenosis: Father. Immunizations Vaccine Date Status influenza virus vaccine, inactivated 12/09/2022 Recorded Comments : EMPLOYEE [employer] SARS-CoV-2 (COVID-19) mRNA BNT-162b2 vax 12/09/2021 Recorded [...] influenza virus vaccine, inactivated 12/18/2008 Recorded Novel Knmzkhjpw-[id number], all formulation 12/18/2008 Recorded tetanus-diphth toxoids (Td) adult/adol 02/18/2000 Recorded Electronically Signed on 01/21/23 01:40 PM Sinai Joiner GAS PIT WORKER Patient Care team information Care Team Personnel Name: Catherine Yo GAS PIT WORKER Position: PowerChart View Only Member Role: Primary Care Physician Address: Address: [address] [place] [id number]- Care Team Related Persons Name: ARASELI CASAS Address: Home [address] [place] [address], [id number]
[2023-02-19 20:26] LABS: Hemoglobin A1C 5.7 % (<5.7)
[2023-02-19 20:39] LABS: ALT 40 U/L (14-59); AST 20 U/L (15-37); Albumin 4.2 g/dL (3.4-5.0); Alkaline Phosphatase 73 U/L (46-116); Anion Gap 6.5 mmol/L (3-11); BUN 12 mg/dL (7-18); Bilirubin, Total 0.8 mg/dL (0.2-1.0); CO2 27.5 mmol/L (21.0-32.0); CREATININE 0.9 mg/dL (0.55-1.02); Calcium 9.6 mg/dL (8.5-10.1); Calculated LDL 61 mg/dL (<100); Chloride 104 mmol/L (98-107); Cholesterol 128 mg/dL (<200); Estimated GFR 78.37 (mL/min/1.73m2); Glucose 113 mg/dL (74-106); HDL Cholesterol 52 mg/dL (40-60); Potassium 4.3 mmol/L (3.5-5.1); Sodium 138 mmol/L (136-145); Triglyceride 79 mg/dL (<150)
== END 2023-02-19 09:00 | disposition home or self-care (01) ==
LOC: NCHCN 08:59
PROVIDERS: PCP Nurse Practitioner Family; Visit Provider Nurse Practitioner Family
DX: E11.9 Type 2 diabetes mellitus without complications (principal)
CPT/HCPCS: 80053; 80061; 83036

== ENCOUNTER 2024-02-23 14:44 | Outpatient (REF) | payer BC, SELFPAY ==
--- OUTSIDE RECORDS SUMMARY | 2024-02-23 14:57 | XMS_ITS | Continuity of Care Document ---
Author Organization [facility] Address [address] [place] [address] Care Team Providers Care Cutting And Printing Machine Operator Name Role Phone Catherine Yo Primary Care Physician [phone] Encounter [facility] Date(s): 07/17/23 - 07/17/[address] [address] Discharge Disposition: Home or Self Care Attending Physician: Catherine Yo STAFF ASSISTANT Admitting Physician: Catherine Yo STAFF ASSISTANT Referring Physician: Catherine Yo STAFF ASSISTANT Allergies, Adverse Reactions, Alerts Substance Reaction Severity [...] Recorded tetanus/diphth/pertuss (Tdap) adult/adol 09/17/09 Recorded Novel Gfqcgjqbo-E4R6-90, all formulation 12/18/08 Recorded tetanus-diphth toxoids (Td) [...] nausea/vomiting, # 30 tab, 1 Refill(s), Pharmacy: [id number] Start Date: 02/06/22 Status: Ordered Ozempic 2 [...] information Care Team Personnel Name: Catherine Yo STAFF ASSISTANT Position: PowerChart View Only Member Role: Primary Care Physician Address: Address: [address] [place] [id number] Care Team Related Persons Name: ARASELI CASAS Address: Home [address] [place] [address], [phone]
--- OUTSIDE RECORDS SUMMARY | 2024-02-23 14:57 | XMS_ITS | Continuity of Care Document ---
Author Organization [facility] Address [address] [place] [address] Care Team Providers Care Pot Annealer Name Role Phone Catherine Yo Primary Care Physician Encounter NCT[facility]_[place] Date(s): 12/08/23 - 12/08/[address] [address] Discharge Disposition: Home or Self Care Attending Physician: Catherine Yo CREDIT COUNSELOR Admitting Physician: Catherine Yo CREDIT COUNSELOR Referring Physician: Catherine Yo CREDIT COUNSELOR Allergies, Adverse Reactions, Alerts Substance Criticality Severity Reaction Reaction Severity Status CHOCOLATE FLAVOR Unable to assess criticality Unknown Angioneurotic edema Active doxycycline Unable to assess criticality Unknown Urticaria Active Immunizations Given and Recorded Vaccine Date [...] Recorded tetanus/diphth/pertuss (Tdap) adult/adol 09/17/09 Recorded Novel Jamvcghfw-[id number], all formulation 12/18/08 Recorded tetanus-diphth toxoids (Td) [...] nausea/vomiting, # 30 tab, 1 Refill(s), Pharmacy: [id number] Start Date: 02/06/22 Status: Ordered Ozempic 2 [...] tobacco user T obacco Use:. Sex Female Sex Representation Female (finding) Patient Care team information Care Team Personnel Name: Catherine Yo CREDIT COUNSELOR Position: PowerChart View Only Member Role: Primary Care Physician Address: [address] [place] [address] Care Team Related Persons Name: ARASELI CASAS Insurance Providers Guarantor name: TA CASAS Health Plan Information #: 1 Payer: [employer] Member Number: [id number] Policy Number: NA Health Plan Information #: 2 Payer: [employer] Member Number: [id number] Policy Number: NA Health Plan Information #: 3 Payer: [employer] Member Number: [id number] Policy Number: NA
--- OUTSIDE RECORDS SUMMARY | 2024-02-23 14:57 | XMS_ITS | Continuity of Care Document ---
Author Organization [facility] Address [address] [place] [address] Care Team Providers Care Gasoline Tractor Operator Name Role Phone Catherine Yo Primary Care Physician [phone] Encounter [facility] Date(s): 12/17/23 - 12/17/[address] [address] Discharge Disposition: Home or Self Care Attending Physician: Catherine Yo FENCE MACHINE OPERATOR Admitting Physician: Catherine Yo FENCE MACHINE OPERATOR Referring Physician: Catherine Yo FENCE MACHINE OPERATOR Allergies, Adverse Reactions, Alerts Substance Criticality Severity [...] Recorded tetanus/diphth/pertuss (Tdap) adult/adol 09/17/09 Recorded Novel [id number], all formulation 12/18/08 Recorded tetanus-diphth toxoids (Td) [...] nausea/vomiting, # 30 tab, 1 Refill(s), Pharmacy: [id number] Start Date: 02/06/22 Status: Ordered Ozempic 2 [...] Completed 1WNL 2TLH, BSO, USVVS, Cystoscopy 3Laparoscopic Results Laboratory List Name Date Creatinine 12/17/23 Most recent to oldest [Reference Range]: 1 eGFR Non-AA [>=60] 63 (12/17/23 2:14 PM) eGFR AA [>=60] 63 (12/17/23 2:14 PM) Creatinine Level [0.55-1.02 mg/dL] 1.08 mg/dL *HI* (12/17/23 2:14 PM) Social History Social History Type Response Tobacco Never tobacco user T obacco Use:. Sex Female Sex Representation Female (finding) Patient Care team information Care Team Personnel Name: Catherine Yo FENCE MACHINE OPERATOR Position: PowerChart View Only Member Role: Primary Care Physician Address: [address] [place] [address] Care Team Related Persons Name: ARASELI CASAS NATE Insurance Providers Guarantor name: TA CASAS Health Plan Information #: 1 Payer: [employer] Member Number: [id number] Policy Number: NA Health Plan Information #: 2 Payer: [employer] Member Number: [id number] Policy Number: NA Health Plan Information #: 3 Payer: [employer] Member Number: [id number] Policy Number: NA
--- OUTSIDE RECORDS SUMMARY | 2024-02-23 14:58 | XMS_ITS | Encounter Summary ---
Author Organization [facility] Address [address] [place] [address] Care Team Providers Care Roads And Parking Lots Sweeper Operator Name Role Phone Unavailable Primary Care Provider Unavailabl e Encounter Details Date Type Department Care Team (Late st Contact Info) Description 12/06/2008 Orders Only [facility] [phone] Allyssa Lerner, MADDI [address] [address] Social History Tobacco Use Types Packs/Day Years Used Date Smoking Tobacco: Never Assessed Comments Unknown Sex and Gender Information Value Date Recorded Sex Assigned at Not on file Legal Sex Female 18:07 EST Gender Identity Not on file Sexual Orientation Not on file documented as of this encounter Plan of Treatment Not on file documented as of this encounter Procedures Procedure Name Priority Date/Time Associated Diagnosis Comments CYTOPATHOLOGY Routine 12/06/2008 0:00 EDT documented in this encounter Results * CYTOPATHOLOGY (12/06/2008 0:00 EDT) Pathology Report: CYTOPATHOLOGY REPORT ? Reports generated via electronic interface contain original data; ? however they are lacking the format of the original report. ? Caution should be taken when reading/interpreti ng unformatted reports. ? Name: ? AUGUSTINA MORENO ? Accession #: ? [id number] ? : ? 1975 (Age: 33) ??F ?Collect Date: ? 12/06/2008 ? Location: ? [facility] ? Receive Date: ? 12/08/2008 ? Provider: ?ALLYSSA LINDA ? Copy to: ? Specimen/Source: ?Pap Test, Vagina/Endocervix, ThinPrep Imaging System ? with manual evaluation ? Last Menstrual Period: ? 9/19/09 ? Other: ? HPVA - HPV testing requested if ASC-US on the current ThinPrep Pap test. ? SPECIMEN ADEQUACY ? Satisfactory for Evaluation ? - transformation zone component present ? GENERAL CATEGORIZATION ? Negative for Intraepithelial Lesion or Malignancy ? Document reviewed and electronically signed by: ? Briana [place], SCT(ASCP) ? Report Date: ??12/15/2008 10:50 ? End of Report ? [facility] 12/06/2008 12/08/2008 us Allyssa LINDA PATHOLOGY ORDERABLES Final R esult [facility] [address] [place] [address] documented in this encounter Visit Diagnoses Not on filedocumented in this encounter
--- OUTSIDE RECORDS SUMMARY | 2024-02-23 14:58 | XMS_ITS | Encounter Summary ---
Author Organization [facility] Address [address] [place] [address] Care Team Providers Care Incident Response Lead Name Role Phone Unknown, Provider MD Primary Care Provider Unava ilable Encounter Details Date Type Department Care Team (Latest Contact Info) Description 12/15/2017 11:05 EDT - 12/15/2017 23:59 EDT Hospital Encounter [address] [address] Unknown, Provider, Discharge Disposition: Home or Self Care Social History Tobacco Use Types Packs/Day Years Used Date Smoking Tobacco: Never Assessed Comments Unknown Sex and Gender Information Value Date Recorded Sex Assigned at Not on file Legal Sex Female 18:07 EST Gender Identity Not on file Sexual Orientation Not on file documented as of this encounter Discharge Disposition Disposition Code Departure Means Destination Home or Self Residential documented in this encounter Plan of Treatment Not on file documented as of this encounter Visit Diagnoses Not on filedocumented in this encounter Care Teams Incident Response Lead Relationship Specialty Start Date End Date Unknown, Provider, PCP - General 07/01/12 documented as of this encounter
--- OUTSIDE RECORDS SUMMARY | 2024-02-23 14:58 | XMS_ITS | Encounter Summary ---
Author Organization [facility] Address [address] [place] [address] Care Team Providers Care Reaming Machine Operator Name Role Phone Unavailable Primary Care Provider Unavailabl e Encounter Details Date Type Department Care Team (Late st Contact Info) Description 04/26/2002 Results Only [facility] - [facility] [address] [place] [address] Artis, May, [facility] [address] [place] [phone] Social History Tobacco Use Types Packs/Day Years [...] Priority Date/Time Associated Diagnosis Comments CYTOPATHOLOGY Routine 04/26/2002 0:00 EST documented in this encounter Results * CYTOPATHOLOGY (04/26/2002 0:00 EST) Pathology Report: CYTOPATHOLOGY REPORT Reports generated via electronic interface contain original data; however they are lacking the format of the original report. Caution should be taken when reading/interpreti ng unformatted reports. Name: ? AUGUSTINA MORENO ? Accession #: ? [id number] : ? 1975 (Age: 26) ??F ?Collect Date: ? 04/26/2002 Location: ? [facility] ? Receive Date: ? 04/28/2002 Provider: ?ELLA WISDOM CNM Copy to: ? Specimen/Source: ?ThinPrep Pap Test, Cervix/Endocervix Last Menstrual Period: ? 04/14/02 ? SPECIMEN ADEQUACY ? Satisfactory for Evaluation - transformation zone component present GENERAL CATEGORIZATION ? Negative for Intraepithelial Lesion or Malignancy ? Document reviewed and electronically signed by: ? Carl Melendez, CT(ASCP) ? Report Date: ??04/29/2002 10:27 End of Report [facility] 04/26/2002 04/28/2002 us Ella Wisdom CNM PATHOLOGY ORDERABLES Final R esult [facility] [address] [place] [address] documented in this encounter Visit Diagnoses Not on filedocumented in this encounter
--- OUTSIDE RECORDS SUMMARY | 2024-02-23 14:58 | XMS_ITS | Encounter Summary ---
Author Organization [facility] Address [address] [place] [address] Care Team Providers Care Coil Tier Name Role Phone Unavailable Primary Care Provider Unavailabl e Encounter Details Date Type Department Care Team (Late st Contact Info) Description 03/14/2001 Results Only [facility] - [facility] conversion [address] [place] [address] Claire Bocanegra, ZENON [address] [place] [address],[address] [place] [address] Social History Tobacco Use Types Packs/Day Years [...] Priority Date/Time Associated Diagnosis Comments CYTOPATHOLOGY Routine 03/14/2001 0:00 EST documented in this encounter Results * CYTOPATHOLOGY (03/14/2001 0:00 EST) Pathology Report: CYTOPATHOLOGY REPORT Reports generated via electronic interface contain original data; however they are lacking the format of the original report. Caution should be taken when reading/interpreti ng unformatted reports. Name: ? AUGUSTINA MORENO ? Accession #: ? [id number] : ? 1975 (Age: 25) ??F ?Collect Date: ? 03/14/2001 Location: ? [facility] ? Receive Date: ? 03/18/2001 Provider: ?CLAIRE BOCANEGRA PICKLING OPERATOR Copy to: ? Specimen/Source: ?Conventional Pap Test, Vag/Cx/Endo Last Menstrual Period: ? 02/27/01 Other: ? Client ID#: [id number] ? SPECIMEN ADEQUACY ? Satisfactory for Evaluation - transformation zone component present GENERAL CATEGORIZATION ? Negative for Intraepithelial Lesion or Malignancy ? Document reviewed and electronically signed by: ? AL Cedeno(ASCP) ? Report Date: ??03/19/2001 07:39 End of Report [facility] 03/14/2001 03/18/2001 us Claire Bocanegra NP PATHOLOGY ORDERABLES Final Resul t [facility] [address] [place] [address] documented in this encounter Visit Diagnoses Not on filedocumented in this encounter
--- OUTSIDE RECORDS SUMMARY | 2024-02-23 14:58 | XMS_ITS | Encounter Summary ---
Author Organization [facility] [place] [address] Care Team Providers Care Auctioneer Tobacco Name Role Phone Catherine Yo JAKE Primary Care Provider [phone] Encounter Details Date Type Department Care Team (Late st Contact Info) Description 04/02/2005 [place] [phone] Thad Navas MD Social History Tobacco Use Types Packs/Day Years Used Date Smoking Tobacco: Never Assessed Sex and Gender Information Value Date Recorded Sex Assigned at Not on file Gender Identity Not on file Sexual Orientation Not on file documented as of this encounter Plan of Treatment Not on file documented as of this encounter Procedures Procedure Name Priority Date/Time Associated Diagnosis Comments SURGICAL PATHOLOGY REPORT Routine 04/02/2005 9:24 AM EST documented in this encounter Results * Surgical Pathology Report (04/02/2005 9:24 AM EST) Surgical Pathology Report [id number] ? Location: The signing pathologist has (i) examined the relevant preparation(s) for the specimen(s) and (ii) rendered or confirmed the diagnosis(es). . ?Pathology Surgical Pathology Final Report Clinical Information Specimen Submitted: CONSULTATION CASE A - 10 slides labeled [id number], collection date 03/26/05. [id number] Report to: Thad Navas MD Department of Pathology [place], [place] ??[address] Gross Description [facility] pathology slide(s) are reviewed. ??Refer to Diagnosis and Specimen Submitted for specific case information. For the full text of the [facility] report(s) please refer to Non-DH Documentation Pathology in the Clinical Information System (CIS). Microscopic Description Slides reviewed, microscopic description not recorded. Diagnosis CONSULTATION CASE Skin of upper right buttock, excision: Lentiginous compound nevus with architecural disorder and moderate to severe cytologic atypia, margins appear negative. CR-0 04/03/05 AEP 04/03/05 Verified by: ? Sophia Bingham MD ?Dermatopatholo gist ?(Electronic Signature) The attending pathologist whose signature appears on this report has reviewed all diagnostic slides and has edited the gross and/or microscopic portion of the report in rendering the final pathologic diagnosis. Comment Dr. Susie Harris and Dr. Warner Galdamez also examined the case and concur with the interpretation. NANDO CLARK 04/02/2005 9:24 AM EST Thad Navas MD PATHOLOGY/CYTOLOGY ORDERABLES Performing Organization Address City/State/[facility] Co pr Phone Number NANDO CLARK documented in this encounter Visit Diagnoses Not on filedocumented in this encounter Care Teams Auctioneer Tobacco Relationship Specialty Start Date End Date Catherine Yo APRN [address] [place] [id number] PCP - General Family Medicine 08/17/22 documented as of this encounter
--- OUTSIDE RECORDS SUMMARY | 2024-02-23 14:58 | XMS_ITS | Encounter Summary ---
Author Organization [facility] Address [address] [place] [address] Care Team Providers Care Color Drum Worker Name Role Phone Unknown, Provider Primary Care Provider Unava ilable Encounter Details Date Type Department Care Team (Late st Contact Info) Description 10/21/2013 Results Only [facility] [phone] Cain Torres, I[address] [place] [address] Social History Tobacco Use Types Packs/Day Years [...] Procedure Name Priority Date/Time Associated Diagnosis Comments PAP TEST- RESULT ONLY Routine 10/21/2013 0:00 EDT documented in this encounter Results * PAP TEST- RESULT ONLY (10/21/2013 0:00 EDT) Pathology Report: CYTOPATHOLOGY REPORT Reports generated via electronic interface contain original data; however they are lacking the format of the original report. Caution should be taken when reading/interpreti ng unformatted reports. Name: ? AUGUSTINA MORENO ? Accession #: ? [id number] ? : ? 1975 (Age: 38) ??F ?Collect Date: ? 10/21/2013 ? Location: ? [facility] ? Receive Date: ? 10/22/2013 ? Provider: CAIN LINDA Copy to: ? Final Report SPECIMEN ADEQUACY ? Satisfactory for Evaluation - transformation zone component present GENERAL CATEGORIZATION ? Negative for Intraepithelial Lesion or Malignancy INTERPRETATION ? Shift in jonathan present suggestive of bacterial vaginosis. Last Menstrual Period: 10/07/13 Specimen/Source: ??Pap Test, Cervix, ThinPrep Imaging System with manual evaluation Document reviewed and electronically signed by: ? AL Bender(ASCP) ? Report ??Date: 10/27/2013 13:01 HPV with Pap Test ? Date Ordered: ? 10/27/2013 ? Status: ?? Signed Out ?Date Complete: ? 10/29/2013 ? By: ??System Interface ? Date Reported: ? 10/29/2013 ? Interpretation RESULT: Negative for HPV. No E6 or E7 mRNA is detected from HPV types 16,18,31,33,35, 39,45,51,52,56,58, 59,66, and 68 by machine pie maker mediated amplification. Comments Document reviewed and electronically signed by: ? System Interface ? Report date: 10/29/2013 By the signature above, the attending physician certifies that he/she has personally conducted a gross and/or microscopic examination of the described specimens and rendered or confirmed the above diagnosis. End of Report [facility] 10/21/2013 10/22/2013 us Cain Torres PA-C PATHOLOGY ORDERABLES Final R esult [facility] [address] [place] [address] documented in this encounter Visit Diagnoses Not on filedocumented in this encounter Care Teams Color Drum Worker Relationship Specialty Start Date End Date Unknown, Provider, PCP - General 07/01/12 documented as of this encounter
--- OUTSIDE RECORDS SUMMARY | 2024-02-23 14:58 | XMS_ITS | Encounter Summary ---
Author Organization [facility] Address [address] [place] [address] Care Team Providers Care Feed Mill Manager Name Role Phone Unavailable Primary Care Provider Unavailabl e Encounter Details Date Type Department Care Team (Late st Contact Info) Description 10/11/1999 Results Only [facility] - Maple conversion [address] [place] [address] Marisa Naranjo MD [address] [place] [address] [address] [place] [address] Social History Tobacco Use Types Packs/Day Years [...] Priority Date/Time Associated Diagnosis Comments CYTOPATHOLOGY Routine 10/11/1999 0:00 EDT documented in this encounter Results * CYTOPATHOLOGY (10/11/1999 0:00 EDT) Pathology Report: CYTOPATHOLOGY REPORT Reports generated via electronic interface contain original data; however they are lacking the format of the original report. Caution should be taken when reading/interpreti ng unformatted reports. Name: ? AUGUSTINA MORENO ? Accession #: ? [id number] : ? 1975 (Age: 24) ??F ?Collect Date: ? 10/11/1999 Location: ? [facility] ? Receive Date: ? 10/15/1999 Provider: ?MARISA NARANJO MD Copy to: ? Specimen/Source: ?Conventional Pap Test, Cervix/Endocervix Last Menstrual Period: ? 10/03/99 ? SPECIMEN ADEQUACY ? Satisfactory for evaluation. GENERAL CATEGORIZATION ? Within Normal Limits ? Document reviewed and electronically signed by: ? AL Sy(ASCP) ? Report Date: ??10/16/1999 13:02 End of Report [facility] 10/11/1999 10/15/1999 us Marisa Naranjo MD PATHOLOGY ORDERABLES Final Resul t [facility] [address] [place] [address] documented in this encounter Visit Diagnoses Not on filedocumented in this encounter
--- OUTSIDE RECORDS SUMMARY | 2024-02-23 14:58 | XMS_ITS | Encounter Summary ---
Author Organization [facility] Address [address] [place] [address] Care Team Providers Care Patternmaker Hand Name Role Phone Unknown, Provider Primary Care Provider Unava ilable Encounter Details Date Type Department Care Team (Late st Contact Info) Description 12/15/2017 Results Only [facility] [phone] Niranjan Bui MD [address] [place] [address] Social History Tobacco Use Types Packs/Day [...] Priority Date/Time Associated Diagnosis Comments SURGICAL PATHOLOGY Routine 12/15/2017 21 :43 EDT documented in this encounter Results * SURGICAL PATHOLOGY (12/15/2017 21:43 EDT) Pathology Report: SURGICAL PATHOLOGY REPORT Reports generated via electronic interface contain original data; however they are lacking the format of the original report. Caution should be taken when reading/interpreti ng unformatted reports. Name: ? AUGUSTINA MORENO ? Accession #: ? [id number] ? : ? 1975 (Age: 42) ??F ? Collect Date: ? 12/15/2017 ? Location: ? [facility] ? Receive Date: ? 12/15/2017 ? Provider: NIRANJAN BUI MD Copy to: ? Final Pathologic Diagnosis: CERVIX, UTERUS, FALLOPIAN TUBES AND OVARIES, HYSTERECTOMY AND BILATERAL SALPINGO-OOPHORECT CONSTANCE: - Cervix: - Squamous metaplasia. - Cystically dilated endocervical glands (nabothian cysts). - Endometrium: - Weakly proliferative endometrium with disordered glandular pattern. - Myometrium: - Superficial adenomyosis. - Leiomyomata, intramural. - Uterine serosa: - No specific histopathologic features. - Fallopian tubes: - Changes consistent with bilateral tubal ligation. - Ovary, right: - Follicular cyst. - Ovary, left: - Benign ovary with no specific histopathologic features. Document reviewed and electronically signed by: Lauryn Sanchez MD Report ??Date: 12/19/2017 06:26 By the signature above, the attending physician certifies that he/she has personally conducted a gross and/or microscopic examination of the described specimens and rendered or confirmed the above diagnosis. Specimen(s) Received: Uterus, cervix, bilateral tubes, and ovaries Clinical History: Abnormal uterine bleeding, pelvic pain Gross Description: ? Received in formalin labelled with proper patient identification (initials W, T) and uterus, cervix, bilateral tubes and ovaries is an intact, unopened uterus (74.0 g, 8.5 cm fundus to cervix x 5.2 cm cornu to cornu x 2.8 cm anterior to posterior), right ovary (3.2 x 2.3 x 1.7 cm), left ovary (2.0 x 1.6 x 0.8 cm), right fallopian tube (4.7 cm in length x 0.4 cm in diameter), and left fallopian tube (4.5 cm in length x 0.5 cm in diameter). The serosa is smooth and pink-nunez. The cervix (3.0 cm in diameter) is covered by pink-escobar to nunez-brown ectocervical mucosa and has a slit-like os (1.2 cm). The mucosa immediately surrounding the os is finely granular. The endocervical canal (2.8 cm in length) is lined by pink-white, somewhat denuded mucosa. There is a 2.0 cm in greatest dimension, smooth-walled Nabothian cyst located at the distal aspect of the cervix. The cyst is filled with nunez-yellow mucus. The endometrial cavity (2.4 cm cornu to cornu x 3.9 cm in length) is lined by soft nunez-red endometrium (0.5 cm in maximum the). The nunez, coarsely trabeculated myometrium (1.5 cm in maximum thickness) contains multiple well-circumscribed whorled, white intramural nodules (ranging up to 0.6 cm in greatest dimension) that show no evidence of hemorrhage or necrosis. The focally disrupted right ovary has a smooth to cerebriform nunez-white cortical surface. Sectioning reveals a 2.4 cm greatest dimension, smooth-walled cyst. Scant nunez-brown hemorrhage is identified within the cyst wall. No excrescences are identified. The remaining ovarian parenchyma is nunez-white and unremarkable. The right fimbriated fallopian tube has a smooth purple-escobar serosal surface. There is a 0.5 x 0.3 cm white, circular plastic device embedded within the proximal end of the fallopian tube, adjacent to the cornu. Sectioning of the remainder of the tube reveals a patent, unremarkable lumen. The left ovary has a cerebriform nunez-white cortical surface. Sectioning reveals nunez-white to pale pink, unremarkable cut surfaces. The left fimbriated fallopian tube has a dusky purple-escobar serosal surface. There is a 0.5 x 0.3 cm light, circular plastic device embedded within the proximal end of the fallopian tube, adjacent to the cornea. Sectioning of the remainder of the tube reveals a patent, unremarkable lumen. Insulation Blanket Maker sections are submitted as follows: BLOCK EDWARD 1- ??anterior cervix to lower uterine segment 2-3- ??posterior cervix to lower uterine segment, bisected 4-6- ??solar sales representative and assessor anterior endomyometrium 7-9- ??solar sales representative and assessor posterior endomyometrium 10-11- ??solar sales representative and assessor right ovary 12- ??solar sales representative and assessor right fallopian tube, to include the bisected fimbria 13- ??solar sales representative and assessor left ovary 14- ??solar sales representative and assessor left fallopian tube, to include the bisected fimbria MADDI Tolbert (ASCP) 12/16/2017 11:35 AM End of Report [facility] 12/15/2017 21:4 3 EDT 12/15/2017 21:43 EDT us Niranjan Bui MD PATHOLOGY ORDERABLES F inal Result [facility] [address] [place] [address] documented in this encounter Visit Diagnoses Not on filedocumented in this encounter Care Teams Patternmaker Hand Relationship Specialty Start Date End Date Unknown, Provider, PCP - General 07/01/12 documented as of this encounter
--- OUTSIDE RECORDS SUMMARY | 2024-02-23 14:58 | XMS_ITS | Encounter Summary ---
Author Organization [facility] Address [address] [place] [address] Care Team Providers Care Yeast Maker Name Role Phone Unavailable Primary Care Provider Unavailabl e Encounter Details Date Type Department Care Team ([facility] st Contact Info) Description 08/10/2003 Results Only [facility] - Maple conversion [address] [place] [address] Rita Pereyra MD [address] [place] [address] Social History Tobacco Use Types Packs/Day [...] Date/Time Associated Diagnosis Comments SURGICAL PATHOLOGY Routine 08/10/2003 0:00 EDT documented in this encounter Results * SURGICAL PATHOLOGY (08/10/2003 0:00 EDT) Pathology Report: SURGICAL PATHOLOGY REPORT Reports generated via electronic interface contain original data; however they are lacking the format of the original report. Caution should be taken when reading/interpreti ng unformatted reports. Name: ? AUGUSTINA MORENO ? Accession #: ? [id number] ? : ? 1975 (Age: 27) ??F ? Collect Date: ? 08/10/2003 ? Location: ? [facility] ? Receive Date: ? 08/12/2003 ? Provider: RITA PEREYRA MD Copy to: GLORIA BOCANEGRA MONOTYPE OPERATOR ? Final Pathologic Diagnosis: ? Skin of left chest wall, shave excision: - Melanocytic nevus, predominantly junctional type, with unusual architectural features and moderate ??cytologic atypia, completely excised. Document reviewed and electronically signed by: Preet Vicente MD Report ??Date: 08/15/2003 16:18 By the signature above, the attending physician certifies that he/she has personally conducted a gross and/or microscopic examination of the described specimens and rendered or confirmed the above diagnosis. Specimen(s) Received: ? Jct nevus 3.0 mm L chest wall shave exc Clinical History: ? Approximately 3.0 mm jct L chest wall, increasing pigment, slightly irritated; R/O atypia Gross Description: ? Received in formalin labelled Moreno and left chest wall is an irregular 0.7 x 0.5 x < 0.1 cm nunez skin shave which displays a central 0.3 x 0.2 cm brown macule with ill-defined borders. ??The specimen is inked, serially sectioned and is entirely submitted as (A1) and (A2). ??(Graham Carrion)/[facility] End of Report [facility] 08/10/2003 08/12/2003 9:0 7 EDT us Rita Pereyra MD PATHOLOGY ORDERABLES Final R esult [facility] [address] [place] [address] documented in this encounter Visit Diagnoses Not on filedocumented in this encounter
--- OUTSIDE RECORDS SUMMARY | 2024-02-23 14:58 | XMS_ITS | Encounter Summary ---
Author Organization [facility] [place] [address] Care Team Providers Care Liner Machine Operator Helper Name Role Phone Catherine Yo APRN Primary Care Provider [phone]- [phone] Reason for Referral * Consultation (STAT) - Closed Specialty Diagnoses / Procedures Referred By Ashley charlton Referred To Contact Dermatology Diagnoses Skin lesion Catherine Yo APRN [address] [place] [address] [facility] Dermatology [address] [place] [address] Referral ID Status Reason Start Date Expiration Date V isits Requested Visits Authorized [id number] Closed Consult, Test & Treat PCP Updated and/or Approved 08/12/2022 08/13/2023 12 12 Encounter Details Date Type Department Care Team (Late st Contact Info) Description 08/17/2022 Transcribe Orders eDH Incoming Referrals [phone] Catherine Yo APRN [address] [place] [address] Skin lesion Social History Tobacco Use Types Packs/Day Years Used Date Smoking Tobacco: Never Assessed Sex and Gender Information Value Date Recorded Sex Assigned at Not on file Gender Identity Not on file Sexual Orientation Not on file documented as of this encounter Plan of Treatment Scheduled Referrals Name Type Priority Associated Diagnoses Order Schedule Referral to Dermatology Outpatient Referral Routine Skin lesion Ordered: 08/17/2022 documented as of this encounter Visit Diagnoses Diagnosis Skin lesion Unspecified disorder of skin and subcutaneous tissue documented in this encounter Care Teams Liner Machine Operator Helper Relationship Specialty Start Date End Date Catherine Yo APRN [address] [place] [address] PCP - General Family Medicine 08/17/22 documented as of this encounter
--- OUTSIDE RECORDS SUMMARY | 2024-02-23 14:58 | XMS_ITS | Encounter Summary ---
Author Organization [facility] Address [address] [place] [address] Care Team Providers Care Embedded Firmware Engineer Name Role Phone Unknown, Provider Primary Care Provider Unava ilable Encounter Details Date Type Department Care Team (Late st Contact Info) Description 03/26/2016 Results Only [facility] [phone] Lay Anton, ANIMAL RIDE MANAGER [address] [place] [id number] Social History Tobacco Use Types Packs/Day Years [...] Diagnosis Comments PAP TEST- RESULT ONLY Routine 03/26/2016 0:00 EST documented in this encounter Results * PAP TEST- RESULT ONLY (03/26/2016 0:00 EST) Pathology Report: CYTOPATHOLOGY REPORT Reports generated via electronic interface contain original data; however they are lacking the format of the original report. Caution should be taken when reading/interpreti ng unformatted reports. Name: ? AUGUSTINA MORENO ? Accession #: ? [id number] ? : ? 1975 (Age: 40) ??F ?Collect Date: ? 03/26/2016 ? Location: ? [facility] ? Receive Date: ? 03/28/2016 ? Provider: LAY ANTON ANIMAL RIDE MANAGER Copy to: ? Final Report SPECIMEN ADEQUACY ? Satisfactory for Evaluation - transformation zone component present GENERAL CATEGORIZATION ? Negative for Intraepithelial Lesion or Malignancy ?? Last Menstrual Period: 03/04/16 Hormonal/Contracep tive status: None Specimen/Source: ??Pap Test, Endocervix, ThinPrep Imaging System with manual evaluation Document reviewed and electronically signed by: ? Susie Flor, CT(ASCP) ? Report ??Date: 04/02/2016 14:26 HPV with Pap Test ? Date Ordered: ? 04/02/2016 ? Status: ?? Signed Out ?Date Complete: ? 04/04/2016 ? By: ??System Interface ? Date Reported: ? 04/04/2016 ? Interpretation RESULT: Negative for HPV. No E6 or E7 mRNA is detected from HPV types 16,18,31,33,35, 39,45,51,52,56,58, 59,66, and 68 by legal operations manager mediated amplification. Comments Document reviewed and electronically signed by: ? System Interface ? Report date: 04/04/2016 By the signature above, the attending physician certifies that he/she has personally conducted a gross and/or microscopic examination of the described specimens and rendered or confirmed the above diagnosis. End of Report [facility] 03/26/2016 03/28/2016 us Lay Anton ANIMAL RIDE MANAGER PATHOLOGY ORDERABLES Final Resul t [facility] [address] [place] [address] documented in this encounter Visit Diagnoses Not on filedocumented in this encounter Care Teams Embedded Firmware Engineer Relationship Specialty Start Date End Date Unknown, Provider, PCP - General 07/01/12 documented as of this encounter
--- OUTSIDE RECORDS SUMMARY | 2024-02-23 14:58 | XMS_ITS | Encounter Summary ---
Author Organization [facility] Address [address] [place] [address] Care Team Providers Care Email Producer Name Role Phone Unavailable Primary Care Provider Unavailabl e Encounter Details Date Type Department Care Team (Late st Contact Info) Description 10/08/2004 Results Only [facility] - Maple conversion [address] [place] [address] [address] Social History Tobacco Use Types Packs/Day [...] Priority Date/Time Associated Diagnosis Comments CYTOPATHOLOGY Routine 10/08/2004 0:00 EDT documented in this encounter Results * CYTOPATHOLOGY (10/08/2004 0:00 EDT) Pathology Report: CYTOPATHOLOGY REPORT Reports generated via electronic interface contain original data; however they are lacking the format of the original report. Caution should be taken when reading/interpreti ng unformatted reports. Name: ? AUGUSTINA MORENO ? Accession #: ? [id number] : ? 1975 (Age: 29) ??F ?Collect Date: ? 10/08/2004 Location: ? [facility] ? Receive Date: ? 10/10/2004 Provider: ?MIGUELITO LEE CNM Copy to: ? Specimen/Source: ?ThinPrep Pap Test, Cervix/Endocervix, processed on [employer] ThinPrep Imaging System, with manual evaluation Last Menstrual Period: ? 09/07/04 Other: ? HPVA - HPV testing requested if ASC-US on the current ThinPrep Pap test. ? SPECIMEN ADEQUACY ? Satisfactory for Evaluation - transformation zone component present GENERAL CATEGORIZATION ? Negative for Intraepithelial Lesion or Malignancy ? Document reviewed and electronically signed by: ? Briana Stuart, SCT(ASCP) ? Report Date: ??10/17/2004 14:06 End of Report [facility] 10/08/2004 10/10/2004 us Miguelito Lee CNM PATHOLOGY ORDERABLES Fin al Result [facility] [address] [place] [address] documented in this encounter Visit Diagnoses Not on filedocumented in this encounter
--- OUTSIDE RECORDS SUMMARY | 2024-02-23 14:58 | XMS_ITS | Encounter Summary ---
Author Organization [facility] Address [address] [place] [address] Care Team Providers Care Solid Waste Facility Supervisor Name Role Phone Unknown, Provider Primary Care Provider Unarandell iljerry Encounter Details Date Type Department Care Team (Late st Contact Info) Description 11/13/2021 Lab Requisition [facility] Pathology & Laboratory Medicine - [address] [id number] Outr Resulting Lab, Provider Social History Tobacco Use Types Packs/Day Years Used Date Smoking Tobacco: Never Assessed Interpersonal Safety Answer Date Record ed Physically Hurt Never 09/19/2019 Verbally Threaten Not on file 09/19/2019 Comments Unknown Sex and Gender Information Value Date Recorded Sex Assigned at Not on file Legal Sex Female 18:07 EST Gender Identity Not on file Sexual Orientation Not on file documented as of this encounter Plan of Treatment Not on file documented as of this encounter Procedures Procedure Name Priority Date/Time Associated Diagnosis Comments HEPATITIS C AB W REFLEX TO HCV RNA BY PCR Routine 11/12/2021 8:00 EDT documented in this encounter Results * HEPATITIS C AB W REFLEX TO HCV RNA BY PCR (11/12/2021 8:00 EDT) Hep C Antibody Negative Negative 11/14/2021 10:44 EDT [facility] Blood VENOUS BLOOD / Unknown 11/12/2021 8:00 EDT 11/13/2021 17:27 EDT us Provider Outr Resulting Lab CHEMISTRY & BLOOD GA S ORDERABLES Final Result [facility] [address] [place] [address] documented in this encounter Visit Diagnoses Not on filedocumented in this encounter Care Teams Solid Waste Facility Supervisor Relationship Specialty Start Date End Date Unknown, Provider, PCP - General 07/01/12 documented as of this encounter
--- OUTSIDE RECORDS SUMMARY | 2024-02-23 14:58 | XMS_ITS | Clinical Summary ---
Author Organization [facility] [place] [address] Care Team Providers Care Mass Spectrometry Specialist Name Role Phone Catherine Yo APRN Primary Care Provider +1- [phone] Social History Tobacco Use Types Packs/Day Years Used Date Smoking Tobacco: Never Assessed Sex and Gender Information Value Date Recorded Sex Assigned at Not on file Gender Identity Not on file Sexual Orientation Not on file Plan of Treatment Health Maintenance Due Date Last Done Comments CT Colonography 1975 Colonoscopy 1975 Colorectal Cancer Screening 1975 FIT DNA 1975 FIT 1975 Sigmoidoscopy (10 year) with FIT yearly 1975 Sigmoidoscopy 1975 HIV screen 09/22/1991 Hepatitis C Screening 09/22/1991 Hepatitis B vaccine (0-59 yrs) (1) 1992 Tetanus/Diphtheria/Pertussis Vaccines (1 - Tdap) 1992 HPV test 09/22/2003 PAP Smear 09/22/2003 Breast Cancer Share Decision Needed 2013 Breast Cancer screening 2013 Zoster vaccine (1 of 2) 09/22/2023 Covid-19 Vaccine ( - 2023-2 5 season) 2023 12/09/2021, 12/16/2020, 03/08/2020, Additional history exists Influenza (Flu) vaccine (1 o f 1 - Influenza standard series) 10/19/2023 Care Teams Mass Spectrometry Specialist Relationship Specialty Start Date End Date Catherine Yo APRN [address] [place], [place] [address] PCP - General Family Medicine 08/17/22
--- OUTSIDE RECORDS SUMMARY | 2024-02-23 14:58 | XMS_ITS | Clinical Summary ---
Author Organization [facility] Address [address] [place] [address] Care Team Providers Care Marine Animal Trainer Name Role Phone Unknown, Provider Primary Care Provider Unava ilable Social History Tobacco Use Types Packs/Day Years [...] Health Maintenance Due Date Last Done Comments Hepatitis B Vaccine (1 of 3 - 19+ 3-dose series) 09/21 COVID-19 Vaccine ( season) 2023 Hepatitis C Screen Completed 11/12/2021 Procedures Procedure Name Priority Date/Time Associated Diagnosis Comments HEPATITIS C AB W REFLEX TO HCV RNA BY PCR Routine 11/12/2021 8:00 EDT from Last 3 Months or Most Recently Relevant to Health Maintenance Results * HEPATITIS C AB W REFLEX TO HCV RNA BY PCR (11/12/2021 8:00 EDT) Hep C Antibody Negative Negative 11/14/2021 10:44 EDT [facility] Blood VENOUS BLOOD / Unknown 11/12/2021 8:00 EDT 11/13/2021 17:27 EDT us Provider Outr Resulting Lab CHEMISTRY & BLOOD GA S ORDERABLES Final Result [facility] [address] [place] [address] from Last 3 Months or Most Recently Relevant to Health Maintenance Care Teams Marine Animal Trainer Relationship Specialty Start Date End Date Unknown, Provider, PCP - General 07/01/12
--- OUTSIDE RECORDS SUMMARY | 2024-02-23 14:58 | XMS_ITS | Continuity of Care Document ---
Author Organization [facility] Address [address] [place] [address] Care Team Providers Care Premix Concrete Batcher Name Role Phone Catherine Yo Primary Care Physician [phone] Encounter [facility] Date(s): 12/12/23 - 12/12/[address] [address] Discharge Disposition: Home or Self Care Attending Physician: Catherine Yo SPRING FORMER HAND Admitting Physician: Catherine Yo SPRING FORMER HAND Referring Physician: Catherine Yo SPRING FORMER HAND Allergies, Adverse Reactions, Alerts Substance Criticality Severity [...] Recorded tetanus/diphth/pertuss (Tdap) adult/adol 09/17/09 Recorded Novel [id number]-[id number], all formulation 12/18/08 Recorded tetanus-diphth toxoids (Td) [...] nausea/vomiting, # 30 tab, 1 Refill(s), Pharmacy: [id number] Start Date: 02/06/22 Status: Ordered Ozempic 2 [...] information Care Team Personnel Name: Catherine Yo SPRING FORMER HAND Position: PowerChart View Only Member Role: Primary Care Physician [address]: [address] [place] [address] Care Team Related Persons Name: ARASELI CASAS Insurance Providers Guarantor name: TA CASAS Health Plan Information #: 1 Payer: [employer] Member Number: [id number] Policy Number: NA Health Plan Information #: 2 Payer: [employer] Member Number: [id number] Policy Number: NA Health Plan Information #: 3 Payer: [employer] Member Number: [id number] Policy Number: NA
--- OUTSIDE RECORDS SUMMARY | 2024-02-23 14:58 | XMS_ITS | Encounter Summary ---
Author Organization [facility] Address [address] [place] [address] Care Team Providers Care Marketing Information Analyst Name Role Phone Unavailable Primary Care Provider Unavailabl e Encounter Details Date Type Department Care Team (Late st Contact Info) Description 07/09/2007 Results Only [facility] - Maple conversion [address] [place] [address] Claire Bocanegra, ZENON [address] [place] [address],[address] [place] [address] Social History Tobacco Use Types [...] Priority Date/Time Associated Diagnosis Comments CYTOPATHOLOGY Routine 07/09/2007 0:00 EDT documented in this encounter Results * CYTOPATHOLOGY (07/09/2007 0:00 EDT) Pathology Report: CYTOPATHOLOGY REPORT Reports generated via electronic interface contain original data; however they are lacking the format of the original report. Caution should be taken when reading/interpreti ng unformatted reports. Name: ? AUGUSTINA MORENO ? Accession #: ? [id number] : ? 1975 (Age: 31) ??F ?Collect Date: ? 07/09/2007 Location: ? [facility] ? Receive Date: ? 07/14/2007 Provider: ?CLAIRE BOCANEGRA NP Copy to: ? Specimen/Source: ?ThinPrep Pap Test, Vagina/Cervix/Endo cervix, processed on [employer] ThinPrep Imaging System, with manual evaluation Last Menstrual Period: ? 06/29/07 Other: ? HPVA - HPV testing requested if ASC-US on the current ThinPrep Pap test. ? SPECIMEN ADEQUACY ? Satisfactory for Evaluation - transformation zone component present GENERAL CATEGORIZATION ? Negative for Intraepithelial Lesion or Malignancy ? Document reviewed and electronically signed by: ? Briana Stuart, SCT(ASCP) ? Report Date: ??07/15/2007 15:15 End of Report [facility] 07/09/2007 07/14/2007 us Claire Bocanegra NP PATHOLOGY ORDERABLES Final Resul t [facility] [address] [place] [address] documented in this encounter Visit Diagnoses Not on filedocumented in this encounter
--- OUTSIDE RECORDS SUMMARY | 2024-02-23 14:58 | XMS_ITS | Referral Summary ---
Author Organization [facility] Address [address] [place] [address] Care Team Providers Care Horticulture Professor Name Role Phone Unknown, Provider MD Primary Care Provider Unava ilable Social History [...] Orientation Not on file Plan of Treatment Not on file Procedures Procedure Name Priority Date/Time Associated Diagnosis Comments HEPATITIS C AB W REFLEX TO HCV RNA BY PCR Routine 11/12/2021 8:00 EDT from Last 3 Months or Most Recently Relevant to Health Maintenance Results * HEPATITIS C AB W REFLEX TO HCV RNA BY PCR (11/12/2021 8:00 EDT) Hep C Antibody Negative Negative 11/14/2021 10:44 EDT [facility] Blood VENOUS BLOOD / Unknown 11/12/2021 8:00 EDT 11/13/2021 17:27 EDT us Provider Outr Resulting Lab CHEMISTRY & BLOOD GA S ORDERABLES Final Result [facility] [address] [place] [address] from Last 3 Months or Most Recently Relevant to Health Maintenance Care Teams Horticulture Professor Relationship Specialty Start Date End Date Unknown, Provider, PCP - General 07/01/12
--- OUTSIDE RECORDS SUMMARY | 2024-02-23 14:58 | XMS_ITS | Encounter Summary ---
Author Organization [facility] Address [address] [place] [address] Care Team Providers Care Shower Enclosure Installer Name Role Phone Unknown, Provider Primary Care Provider Unava ilable Encounter Details Date Type Department Care Team (Late st Contact Info) Description 04/18/2020 Lab Requisition [facility] Pathology & Laboratory Medicine - [address] [phone] Outr Resulting Lab, Provider Social History Tobacco [...] Procedure Name Priority Date/Time Associated Diagnosis Comments ZZCOVID-19 TEST [facility] PCR Today 04/18/2020 11:27 EST COVID-19 TESTING Routine 04/18/2020 11:2 7 EST documented in this encounter Results * COVID-19 TEST [facility] PCR (04/18/2020 11:27 EST) Swab ENTIRE NASOPHARYNX / Unknown 04/18/2020 11:27 EST 04/18/2020 21:18 EST us Provider Outr Resulting Lab MICROBIOLOGY - GENER AL ORDERABLES Final Result [facility] [address] [place] [address] * COVID-19 TESTING (04/18/2020 11:27 EST) COVID-19 rt-PCR Result Negative Negative 04/19/2020 14:35 EST [facility] Comment: This test has not been FDA cleared or approved. This test has been authorized by FDA under an EUA for use by authorized laboratories. This test has been authorized only for detection of nucleic acid from 2019-nCoV, not for any other viruses or pathogens. This test is only authorized for the duration of the declaration that circumstances exist justifying the authorization of emergency use of in vitro diagnostic tests for detection and/or diagnosis of 2019-nCoV under section 564(b)(1) of Act, 21 U.S.C ?? 360bbb-3(b) (1), unless the authorization is terminated or revoked sooner. Negative results do not preclude 2019-nCoV infection and should not be used as the sole basis for treatment or other patient management decisions. Negative results must be combined with clinical observations, patient history, and epidemiological information. This test was developed and its performance characteristics determined by [facility]. It has not been cleared or approved by the US Food and Drug Administration. FDA does not require this test to go through premarket FDA review. This test is used for clinical purposes. It should not be regarded as investigational or for research. This laboratory is certified under the Clinical Laboratory Improvement Amendments (CLIA) as qualified to perform high complexity clinical laboratory testing. This test is based on the [facility] COVID-19 Emergency Use Authorization (EUA) assay, with minor modification as defined by the FDA Performed on the [employer] 7 Pro RT-PCR System. Performing Lab TE [facility] 04/19/2020 14:35 EST [facility] Swab 04/18/2020 11:2 7 EST 04/18/2020 21:18 EST us Provider Outr Resulting Lab MICROBIOLOGY - GENER AL ORDERABLES Final Result Performing Organization Address City/[facility]/ZIP Co de Phone Number [facility] [address] [place] [address] documented in this encounter Visit Diagnoses Not on filedocumented in this encounter Care Teams Shower Enclosure Installer Relationship Specialty Start Date End Date Unknown, Provider, PCP - General 07/01/12 documented as of this encounter
--- OUTSIDE RECORDS SUMMARY | 2024-02-23 14:58 | XMS_ITS | Encounter Summary ---
Author Organization [facility] Address [address] [place] [address] Care Team Providers Care Philosophy And Religion Instructor Name Role Phone Unknown, Provider Primary Care Provider Unava ilable Encounter Details Date Type Department Care Team (Late st Contact Info) Description 07/01/2012 Results Only [facility] - [facility] ([facility] [address] [place], [place] [id number] Claire Bocanegra, ZENON [address] [place] [address],[address] [place] [address] Social History Tobacco Use Types [...] Diagnosis Comments PAP TEST- RESULT ONLY Routine 07/01/2012 0:00 EDT documented in this encounter Results * PAP TEST- RESULT ONLY (07/01/2012 0:00 EDT) Pathology Report: CYTOPATHOLOGY REPORT Reports generated via electronic interface contain original data; however they are lacking the format of the original report. Caution should be taken when reading/interpreti ng unformatted reports. Name: ? AUGUSTINA MORENO ? Accession #: ? [id number] : ? 1975 (Age: 36) ??F ?Collect Date: ? 07/01/2012 Location: ? [facility] ? Receive Date: ? 07/02/2012 Provider: ?CLAIRE BOCANEGRA NP Copy to: ? Specimen/Source: ?Pap Test, Endocervix, ThinPrep Imaging System with manual evaluation Last Menstrual Period: ? Hormonal/Contracep tive Status: ? Tubal ligation ? SPECIMEN ADEQUACY ? Satisfactory for Evaluation - transformation zone component present GENERAL CATEGORIZATION ? Negative for Intraepithelial Lesion or Malignancy ? Document reviewed and electronically signed by: ? AL Sy(ASCP) ? Report Date: ??07/07/2012 13:10 End of Report [facility] 07/01/2012 07/02/2012 us Claire Bocanegra NP PATHOLOGY ORDERABLES Final Resul t [facility] [address] [place] [address] documented in this encounter Visit Diagnoses Not on filedocumented in this encounter Care Teams Philosophy And Religion Instructor Relationship Specialty Start Date End Date Unknown, Provider, PCP - General 07/01/12 documented as of this encounter
--- OUTSIDE RECORDS SUMMARY | 2024-02-23 14:58 | XMS_ITS | Encounter Summary ---
Author Organization [facility] Address [facility] [place] [address] Care Team Providers Care Insole Toe Snipping Machine Operator Name Role Phone Catherine Yo APRN Primary Care Provider [phone]- [phone] Encounter Details Date Type Department Care Team (Latest Contact Info) Description 09/18/2022 Travel Social History Tobacco Use Types Packs/Day Years Used Date Smoking Tobacco: Never Assessed Sex and Gender Information Value Date Recorded Sex Assigned at Not on file Gender Identity Not on file Sexual Orientation Not on file documented as of this encounter Plan of Treatment Not on file documented as of this encounter Visit Diagnoses Not on filedocumented in this encounter Care Teams Insole Toe Snipping Machine Operator Relationship Specialty Start Date End Date Catherine Yo APRN [address] [place] [id number] PCP - General Family Medicine 08/17/22 documented as of this encounter
--- OUTSIDE RECORDS SUMMARY | 2024-02-23 14:58 | XMS_ITS | Encounter Summary ---
Author Organization [facility] Address [facility] [place] [address] Care Team Providers Care Historical Guide Name Role Phone Catherine Yo APRN Primary Care Provider [phone]- [phone] Reason for Visit * Consultation (STAT) - Closed Specialty Diagnoses / Procedures Referred By Ashley charlton Referred To Contact Dermatology Diagnoses Skin lesion Catherine Yo APRN [address] [place] [id number] [facility] Dermatology [address] [place] [address] Referral ID Status Reason Start Date Expiration Date V isits Requested Visits Authorized [id number] Closed Consult, Test & Treat PCP Updated and/or Approved 08/12/2022 08/13/2023 12 12 Encounter Details Date Type Department Care Team (Late st Contact Info) Description 09/19/2022 9:00 AM EDT Office Visit Dermatology at [facility] [address] [place] [address] Shyann Elizabeth MD [facility] [place] [address] Hemangioma, unspecified site; Multiple benign nevi of upper extremity, lower extremity, and trunk; Lentigines; Willis angioma; Seborrheic keratoses; Skin cancer screening Social History Tobacco Use Types Packs/Day Years Used Date Smoking Tobacco: Never Assessed Sex and Gender Information Value Date Recorded Sex Assigned at Not on file Gender Identity Not on file Sexual Orientation Not on file documented as of this encounter Progress Notes * Shyann Elizabeth MD - 09/19/2022 9:00 AM EDT Images from the original note were not included. DEPARTMENT OF DERMATOLOGY Medical Dermatology Clinic Note Provider: Shyann Elizabeth MD Patient's preferred name Augustina Preferred contact method for results [x]Phone []myD-H []Letter Detailed phone message OK? Y Are there any other people with whom we may discuss your care? (Raimundo) Past Medical History Date, location, treatment Melanoma N Dysplastic nevi N SCC N BCC N AKs N UV Exposure & Protection Other relevant past medical history Hx of Eczema Family History Details Melanoma N NMSC N Other relevant family history Sister with Eczema Social History Occupation: RN @ [employer] Hobbies: Other: Pre-Procedure Questions Details Allergy to lidocaine, epinephrine, Dermabond, chlorhexidine, or adhesives N Bleeding disorder or blood thinners N Implanted devices (Pacemaker, defibrillator, deep brain stimulator, cochlear implant) N History of Present Illness: Augustina Moreno is a 46 y.o. Patient is referred to the clinic at the request of Catherine Yo for spot on left nasal side and umbilicus.Patient reports spot on left nasal sidewall which has been present for 5 yrs and has grown in size. Also, patient reports spot on umbilicus which has been present for a few years and has the ABCDE appearance. Patient is currently not treating Review of Systems: General: Feeling well. Skin: No other skin concerns. Medications: Reviewed in eD-H Allergies: Reviewed in eD-H Skin Examination: Full skin examination: Patient asked to undress to their comfort level. Verbalized that the provider???s preference is that the patient remove all clothing and that the provider will not examine areas patient elects to keep covered. Patient elects to keep underwear on and have the following examined: scalp, hair, face, ears, neck, chest, axillae, abdomen, back, and upper and lower extremities. Genitalia and buttocks were not examined. Assessment/Plan #. Angioma - Red/purple vascular papule on the left nasal sidewall . - Discussed benign nature of lesion and provided reassurance. No treatment necessary at this time. #. Seborrheic Keratoses - Stuck on, waxy papules on the trunk and extremities. - Discussed benign nature of lesions and provided reassurance. No treatment necessary at this time. #. Benign Nevi - Scattered medium brown, evenly pigmented macules and papules on the trunk and extremities with reassuring pigment pattern on dermoscopy. - Discussed benign nature of lesions and provided reassurance. Will continue to monitor. #. Lentigines - Scattered light-brown, evenly pigmented, well-demarcated macules on sun-exposed areas of the trunk and extremities. - No worrisome pigmented lesions. Discussed benign nature of lesions and provided reassurance. Willcontinue to monitor. #. Willis Angiomas - Multiple bright red, well-demarcated papules on the trunk and extremities. - Discussed benign nature of lesions and provided reassurance. No treatment necessary at this time. Other: Sun protection discussed (protective clothing and SPF30+ broad-spectrum sunscreen) RTC: 2 yr for FBSE otherwise PRN []Note routed to patient care secretary [x]Recall placed in scheduling system []Appointment scheduled at checkout Scribe attestation: Denita Wu [facility] has performed the documentation for this encounter in the presence of and acting as a scribe for Shyann Elizabeth MD. I performed the above scribed service and agree with the accuracy of the documentation in this encounter. Reviewed and signed by: Shyann Elizabeth MD Dermatology [facility] Patient seen and evaluated with staff advanced manufacturing technician: Johnnie Santizo MD Department of Dermatology [facility] * Johnnie Santizo MD - 09/19/2022 9:00 AM EDT I directly supervised the Dermatology resident during this office visit. The resident presented thehistory and physical exam to me. I then saw and examined this patient with the resident. We reviewed the history and pertinent details and I confirmed the physical findings. I agree with the details of the history and physical exam as documented in the resident's note. JOHNNIE SANTIZO MD Staff Physician documented in this encounter Plan of Treatment Scheduled Referrals Name Type Priority Associated Diagnoses Order Schedule Referral to Dermatology Outpatient Referral Routine Skin lesion Ordered: 08/17/2022 documented as of this encounter Visit Diagnoses Diagnosis Hemangioma, unspecified site Multiple benign nevi of upper extremity, lower extremity, and trunk Lentigines Other dyschromia Willis angioma Nevus, non-neoplastic Seborrheic keratoses Skin cancer screening Screening for malignant neoplasm of the skin documented in this encounter Care Teams Historical Guide Relationship Specialty Start Date End Date Catherine Yo, PROJECT SUPERINTENDENT [address] [place] [id number] PCP - General Family Medicine 08/17/22 documented as of this encounter
--- OUTSIDE RECORDS SUMMARY | 2024-02-23 14:58 | XMS_ITS | Encounter Summary ---
Author Organization [facility] Address [address] [place] [address] Care Team Providers Care Alteration Workroom Supervisor Name Role Phone Unavailable Primary Care Provider Unavailabl e Encounter Details Date Type Department Care Team (Late st Contact Info) Description 09/05/2005 Results Only [facility] [address] [place] [address] Claire Bocanegra, ZENON [address] [place] [address],[address] [place] [address] Social History Tobacco Use Types [...] Priority Date/Time Associated Diagnosis Comments CYTOPATHOLOGY Routine 09/05/2005 0:00 EDT documented in this encounter Results * CYTOPATHOLOGY (09/05/2005 0:00 EDT) Pathology Report: CYTOPATHOLOGY REPORT Reports generated via electronic interface contain original data; however they are lacking the format of the original report. Caution should be taken when reading/interpreti ng unformatted reports. Name: ? AUGUSTINA MORENO ? Accession #: ? [id number] : ? 1975 (Age: 29) ??F ?Collect Date: ? 09/05/2005 Location: ? [facility] ? Receive Date: ? 09/06/2005 Provider: ?CLAIRE BOCANEGRA NUTRITION PARTNER Copy to: ? Specimen/Source: ?ThinPrep Pap Test, Cervix, processed on [employer] Imaging System, with manual evaluation Last Menstrual Period: ? 08/14/05 Hormonal/Contracep tive Status: ? Tubal ligation Other: ? HPVA - HPV testing requested if ASC-US on the current ThinPrep Pap test. ? SPECIMEN ADEQUACY ? Satisfactory for Evaluation - transformation zone component present GENERAL CATEGORIZATION ? Negative for Intraepithelial Lesion or Malignancy ? Document reviewed and electronically signed by: ? AL Sy(ASCP) ? Report Date: ??09/09/2005 16:36 End of Report [facility] 09/05/2005 09/06/2005 us Claire Bocanegra NP PATHOLOGY ORDERABLES Final Resul t [facility] [address] [place] [address] documented in this encounter Visit Diagnoses Not on filedocumented in this encounter
[2024-02-23 19:35] LABS: ALT 39 U/L (14-59); AST 27 U/L (15-37); Albumin 4.2 g/dL (3.4-5.0); Alkaline Phosphatase 71 U/L (46-116); Anion Gap 5.9 mmol/L (3-11); BUN 11 mg/dL (7-18); CO2 28.1 mmol/L (21.0-32.0); CREATININE 0.9 mg/dL (0.55-1.02); Calcium 9.7 mg/dL (8.5-10.1); Calculated LDL 68 mg/dL (<100); Chloride 107 mmol/L (98-107); Cholesterol 149 mg/dL (<200); Estimated GFR 77.88 (mL/min/1.73m2); Glucose 117 mg/dL (74-106); HDL Cholesterol 62 mg/dL (40-60); Potassium 5.2 mmol/L (3.5-5.1); Sodium 141 mmol/L (136-145); Total Protein 7.7 g/dL (6.4-8.2); Triglyceride 99 mg/dL (<150)
== END 2024-02-23 14:45 | disposition home or self-care (01) ==
LOC: NCHCN 14:44
PROVIDERS: PCP Nurse Practitioner Family; Visit Provider Nurse Practitioner Family
DX: E11.9 Type 2 diabetes mellitus without complications (principal); E78.5 Hyperlipidemia, unspecified
CPT/HCPCS: 80053; 80061

== ENCOUNTER 2025-01-20 16:39 | Outpatient (REF) | payer BC, SELFPAY ==
[2025-01-20 18:52] LABS: HCT 37.5 % (36.0-46.0); HGB 12.7 g/dL (11.2-15.7); MCH 30.5 pg (27.0-33.0); MCHC 33.9 % (32.0-36.0); MCV 90 fL (80-95); MPV 10.3 fL (8.0-11.0); Platelet Count 335 10^3/uL (130-400); RBC 4.16 10^6/uL (3.93-5.22); RDW 11.9 % (11.7-14.6); RDW-SD 39.3 fL; WBC 5.41 10^3/uL (4.4-10.8)
[2025-01-20 19:08] LABS: TSH (W/Ref FT4) 0.95 uIU/mL (0.55-4.78)
[2025-01-20 19:18] LABS: ALT 25 U/L (10-49); AST 21 U/L (<34); Albumin 4.7 g/dL (3.2-5.0); Alkaline Phosphatase 68 U/L (46-116); Anion Gap 8.7 mmol/L (3-11); BUN 9 mg/dL (9-23); Bilirubin, Total 0.60 mg/dL (0.2-1.2); CO2 28.3 mmol/L (20.0-31.0); Calcium 9.6 mg/dL (8.3-10.6); Chloride 104 mmol/L (98-107); Cholesterol 119 mg/dL (<200); Glucose 107 mg/dL (74-106); HDL Cholesterol 56 mg/dL (>40); Microalb ug/mg Crea 5.4 ug/mg Cr; Potassium 3.9 mmol/L (3.5-5.1); Sodium 141 mmol/L (136-145); Total Protein 7.2 g/dL (5.7-8.2)
== END 2025-01-20 16:40 | disposition home or self-care (01) ==
LOC: NCHCN 16:39
PROVIDERS: PCP Nurse Practitioner Family; Visit Provider Nurse Practitioner Family
DX: E11.9 Type 2 diabetes mellitus without complications (principal); R53.83 Other fatigue; E78.5 Hyperlipidemia, unspecified
CPT/HCPCS: 80053; 80061; 85027; 82043; 82570; 84443